=== PATIENT | male | born 1995 | race African-American/Black ===

== ENCOUNTER 2019-02-23 17:55 | Emergency (ER) | payer OTHER ==
[~2019-02-23] VITALS: Ht 182.9 cm; Wt 83.9 kg
[2019-02-23 18:22] VITALS: BP 134/77
== END 2019-02-23 18:59 | disposition home or self-care (01) ==
LOC: ER 18:00
DX: R11.2 Nausea with vomiting, unspecified (principal); F32.9 Major depressive disorder, single episode, unspecified
CPT/HCPCS: Z7502

== ENCOUNTER 2019-11-25 01:07 | Emergency (ER) | payer OTHER ==
[~2019-11-25] VITALS: Ht 182.9 cm; Wt 79.4 kg
--- NOTE | 2019-11-25 01:08 | NUR ---
PT BIB [employer] C/O SI "I WANT TO JUMP OF THE BRIDGE" PT IS AAOX4, NOT IN RESPIRATORY DISTRESS, V/S STABLE, KEPT RESTED AND COMFORTABLE, CALLED SECURITY FOR WANDING, WILL CONTINUE TO MONITOR.
--- NOTE | 2019-11-25 01:10 | NUR ---
URINAL GIVEN UNABLE TO PROVIDE URINE SPECIMEN THIS TIME.
--- NOTE | 2019-11-25 01:11 | NUR ---
SEEN AND EXAMINED BY .
--- NOTE | 2019-11-25 01:25 | NUR ---
ER PHLEB AT BEDSIDE FOR BLOOD DRAW.
[2019-11-25 01:28] LABS: BASOPHILS # (AUTO) 0.1 /CMM (0.0-0.2); BASOPHILS % (AUTO) 0.8 % (0.0-2.0); EOSINOPHILS % (AUTO) 1.7 % (0.0-6.0); HEMATOCRIT 44 % (39-51); HEMOGLOBIN 14.6 g/dL (13.5-17.5); LYMPHOCYTES # (AUTO) 3.4 /CMM (0.8-4.8); LYMPHOCYTES % (AUTO) 22.1 % (20.0-44.0); MEAN CORPUSCULAR HGB CONC 33 g/dl (31.0-36.0); MEAN CORPUSCULAR VOLUME 90 fL (80-96); MONOCYTES # (AUTO) 1.3 /CMM (0.1-1.30); MONOCYTES % (AUTO) 8.1 % (2.0-12.0); NEUTROPHILS # (AUTO) 10.4 /CMM (1.8-8.9); NEUTROPHILS % (AUTO) 67.3 % (43.0-81.0); PLATELET COUNT (AUTO) 330 /CMM (150-450); RED BLOOD CELL COUNT(AUTO) 4.86 MIL/uL (4.5-6.0); WHITE BLOOD COUNT (AUTO) 15.4 K/uL (4.3-11.0)
[2019-11-25 01:37] LABS: CALCIUM, SERUM 9.1 mg/dL (8.5-10.1); CARBON DIOXIDE 30 mmol/L (21-32); CHLORIDE 103 mmol/L (98-107); CREATININE 1.2 mg/dL (0.6-1.3); GLUCOSE 136 mg/dL (74-106); POTASSIUM 3.6 mmol/L (3.5-5.1); SODIUM SERUM 141 mmol/L (136-145); UREA NITROGEN, BLOOD 20 mg/dL (7-18)
[2019-11-25 01:43] LABS: ALANINE AMINOTRANSFERASE 39 U/L (12-78); ALBUMIN 3.8 g/dL (3.4-5.0); ALKALINE PHOSPHATASE 106 U/L (46-116); ASPARTATE AMINOTRANSFERASE 28 U/L (15-37); BILIRUBIN,DIRECT 0.1 mg/dL (0.0-0.2); BILIRUBIN,TOTAL 0.3 mg/dL (0.2-1.0); SALICYLATE 3.7 mg/dL (2.8-20.0); TOTAL PROTEIN, SERUM 7.1 g/dL (6.4-8.2)
[2019-11-25 01:48] LABS: ACETAMINOPHEN 0 ug/ml (10-30); ALCOHOL, BLOOD < 3 mg/dL (0-0)
--- NOTE | 2019-11-25 03:05 | NUR ---
PT IN BED SLEEPING. NO DISTRESS NOTED.
--- NOTE | 2019-11-25 03:38 | NUR ---
URINE OBTAINED AND SENT TO LAB
[2019-11-25 03:42] LABS: APPEARANCE,URINE Clear (CLEAR); BILIRUBIN,URINE Negative (NEGATIVE); BLOOD, URINE Negative Ery/uL (NEGATIVE); COLOR,URINE Yellow (YELLOW); KETONES,URINE Negative (NEGATIVE); LEUKOCYTE ESTERASE ,URINE Negative (NEGATIVE); NITRITE, URINE Negative (NEGATIVE); PH,URINE 5.5 (5.0-8.0); PROTEIN,URINE Negative (NEGATIVE); UGLUCOSE Negative (NEGATIVE); UROBILINOGEN,URINE 0.2 EU/dL (0.2)
--- NOTE | 2019-11-25 04:02 | NUR ---
CALLED, NO ANSWER. LEFT MESSAGE TO DEL TWISTING FRAME OPERATOR.
--- NOTE | 2019-11-25 06:02 | NUR ---
DEL FROM CRISIS AT BEDSIDE
--- NOTE | 2019-11-25 06:05 | NUR ---
PT STATED HE WOULD LIKE TO GO VOLUNTARY.
--- NOTE | 2019-11-25 06:31 | NUR ---
CLINICAL AND FACESHEET FAXED TO [facility]TA[facility] FOR VOLUNTARY PSYCH ADMISSION.
--- NOTE | 2019-11-25 06:50 | NUR ---
PT ASLEEP. VSS. EASILY AROUSED.
--- NOTE | 2019-11-25 08:03 | NUR ---
[facility] CALL[facility] AND PT IS ACCEPTED. GOING TO UNIT [address]. [address] IS [address]. LOCKWOOD AND DR. SKINNER. PT GOING TO ROOM 108-B. NUMBER FOR REPORT. [phone] EXT. [phone].
--- NOTE | 2019-11-25 08:23 | NUR ---
CALLED CALL THE CAR FOR TRANSPORT TO [facility]. ETA [facility] 45 MINUTES. REFERENCE NUMBER [id number].
--- NOTE | 2019-11-25 08:52 | NUR ---
Patient awake alert asking for food tray given no agitaion @ this time continue to monitor .
--- NOTE | 2019-11-25 08:54 | NUR ---
RADIOLOGY AT BEDSIDE FOR CHEST XRAY.
[2019-11-25 09:07] LABS: BASOPHILS # (AUTO) 0.4 /CMM (0.0-0.2); BASOPHILS % (AUTO) 3.3 % (0.0-2.0); EOSINOPHILS % (AUTO) 1.7 % (0.0-6.0); HEMATOCRIT 43 % (39-51); HEMOGLOBIN 14.1 g/dL (13.5-17.5); LYMPHOCYTES # (AUTO) 1.3 /CMM (0.8-4.8); LYMPHOCYTES % (AUTO) 11.6 % (20.0-44.0); MEAN CORPUSCULAR HGB CONC 33 g/dl (31.0-36.0); MEAN CORPUSCULAR VOLUME 90 fL (80-96); MONOCYTES # (AUTO) 0.9 /CMM (0.1-1.30); MONOCYTES % (AUTO) 8.1 % (2.0-12.0); NEUTROPHILS # (AUTO) 8.8 /CMM (1.8-8.9); NEUTROPHILS % (AUTO) 75.3 % (43.0-81.0); PLATELET COUNT (AUTO) 298 /CMM (150-450); RED BLOOD CELL COUNT(AUTO) 4.74 MIL/uL (4.5-6.0); WHITE BLOOD COUNT (AUTO) 11.6 K/uL (4.3-11.0)
[2019-11-25 09:30] VITALS: BP 112/59
--- NOTE | 2019-11-25 09:31 | NUR ---
TRANSPORTED TO [facility] IN STABLE CONDITION.
== END 2019-11-25 09:33 ==
LOC: ER 01:10
DX: R45.851 Suicidal ideations (principal); F20.9 Schizophrenia, unspecified; F31.9 Bipolar disorder, unspecified
CPT/HCPCS: 36415; 71045; 80048; 80076; 80305; 80307; 80329; 81001; 85025 ×2; 99285; G0480; 81000-TC

== ENCOUNTER 2019-12-08 21:22 | Emergency (ER) | payer OTHER ==
[~2019-12-08] VITALS: Ht 182.9 cm; Wt 79.4 kg
--- NOTE | 2019-12-08 21:22 | NUR ---
TO ER BED 13 AMBULATORY C/O SI WITH PLAN TO JUMP OFF THE BRIDGE. " I WANT TO JUMP OF THE BRIDGE." PT AAOX4 KULWINDER CUTE DISTRESS NOTED, RESP EVEN AND UNLABORED. PT CAM AND COOPERATIVE AT THIS TIME. CHARLYE PT ON HOSPITAL GOWN, ALL BELONGING REMOVED FROM ROOM, 1:1 SITTER AT BEDSIDE FOR PT SAFETY.
--- NOTE | 2019-12-08 21:35 | NUR ---
URINE SAMPLE COLLECTED AND SENT TO LAB.
[2019-12-08 21:51] LABS: BASOPHILS # (AUTO) 0.1 /CMM (0.0-0.2); BASOPHILS % (AUTO) 1.2 % (0.0-2.0); EOSINOPHILS % (AUTO) 3.1 % (0.0-6.0); HEMATOCRIT 42 % (39-51); HEMOGLOBIN 14.1 g/dL (13.5-17.5); LYMPHOCYTES # (AUTO) 3.5 /CMM (0.8-4.8); LYMPHOCYTES % (AUTO) 30.2 % (20.0-44.0); MEAN CORPUSCULAR HGB CONC 33 g/dl (31.0-36.0); MEAN CORPUSCULAR VOLUME 90 fL (80-96); MONOCYTES # (AUTO) 0.9 /CMM (0.1-1.30); MONOCYTES % (AUTO) 7.4 % (2.0-12.0); NEUTROPHILS # (AUTO) 6.8 /CMM (1.8-8.9); NEUTROPHILS % (AUTO) 58.1 % (43.0-81.0); PLATELET COUNT (AUTO) 345 /CMM (150-450); WHITE BLOOD COUNT (AUTO) 11.7 K/uL (4.3-11.0)
[2019-12-08 22:08] LABS: ALANINE AMINOTRANSFERASE 41 U/L (12-78); ALBUMIN 3.7 g/dL (3.4-5.0); ALCOHOL, BLOOD < 3 mg/dL (0-0); ALKALINE PHOSPHATASE 91 U/L (46-116); ASPARTATE AMINOTRANSFERASE 28 U/L (15-37); BILIRUBIN,DIRECT 0.1 mg/dL (0.0-0.2); BILIRUBIN,TOTAL 0.3 mg/dL (0.2-1.0); CALCIUM, SERUM 8.8 mg/dL (8.5-10.1); CARBON DIOXIDE 29 mmol/L (21-32); CHLORIDE 104 mmol/L (98-107); CREATININE 1.5 mg/dL (0.6-1.3); GLUCOSE 111 mg/dL (74-106); POTASSIUM 3.9 mmol/L (3.5-5.1); SALICYLATE 2.9 mg/dL (2.8-20.0); SODIUM SERUM 140 mmol/L (136-145); TOTAL PROTEIN, SERUM 6.7 g/dL (6.4-8.2); UREA NITROGEN, BLOOD 15 mg/dL (7-18)
[2019-12-08 22:11] LABS: ACETAMINOPHEN 0 ug/ml (10-30)
[2019-12-08 22:34] LABS: APPEARANCE,URINE Clear (CLEAR); BILIRUBIN,URINE SMALL (NEGATIVE); BLOOD, URINE Negative Ery/uL (NEGATIVE); COLOR,URINE Dark (YELLOW); KETONES,URINE Trace (NEGATIVE); LEUKOCYTE ESTERASE ,URINE Negative (NEGATIVE); NITRITE, URINE Negative (NEGATIVE); PH,URINE 5.5 (5.0-8.0); PROTEIN,URINE 100 mg/dl (NEGATIVE); UGLUCOSE Negative (NEGATIVE); UROBILINOGEN,URINE 0.2 EU/dL (0.2)
[2019-12-08 22:54] LABS: BACTERIA,URINE None seen /HPF (None Seen); RBC,URINE 0-2 /HPF (0-2); SQUAMOUS EPITHELIAL CELL,UR Few /HPF (None Seen); WBC,URINE 0-2 /HPF (0-3)
--- NOTE | 2019-12-08 23:50 | NUR ---
CLINICAL PACKET FAXED TO [facility]
--- NOTE | 2019-12-09 03:35 | NUR ---
PT ACCEPTED TO [facility] ACCEPTING MD: DR. KEN/DR. SLOAN NUMBER FOR REPORT: [phone] EXT [phone]
--- NOTE | 2019-12-09 03:41 | NUR ---
CALLED CALL THE CAR FOR TRANSPORTATION. WILL CALL BACK WITH ETA. CONFIRMATION #[id number]
--- NOTE | 2019-12-09 04:31 | NUR ---
REPORT GIVEN TO [facility] TRANSPORT TEAM FOR SAMY. AND TRASNFERRING RESPONSIBILITIES.
--- NOTE | 2019-12-09 04:31 | NUR ---
REPORT GIVEN TO ROMINA BARRETO AT [facility] FOR SAMY.
[2019-12-09 04:32] VITALS: BP 131/76
== END 2019-12-09 04:42 ==
LOC: ER 21:26
DX: R45.851 Suicidal ideations (principal); F32.9 Major depressive disorder, single episode, unspecified; R45.850 Homicidal ideations; F19.10 Other psychoactive substance abuse, uncomplicated; Z59.0 Homelessness
CPT/HCPCS: 36415; 80048; 80076; 80305; 80307; 80329; 81001; 85025; 99285; G0480; 81000-TC

== ENCOUNTER 2020-01-01 20:53 | Emergency (ER) | payer OTHER ==
[~2020-01-01] VITALS: Ht 193 cm; Wt 81.6 kg
--- NOTE | 2020-01-01 21:11 | NUR ---
PT AAOX4. AMBULATORY WITH STEADY GAIT. BIBSELF C/O SI TO SHOOT HIMSELF, NO HI. VSS. NO ACUTE DISTRESS NOTED. VSS. PLACED IN BED 11. BELONINGS PLACED IN LOCKER, PLACED IN GOWN, ON MONITOR, AND PULSE OX. VSS.
--- NOTE | 2020-01-01 21:19 | NUR ---
URINE SAMPLE PROVIDED, SUPERVISOR COUNSELING AND GUIDANCE AT BEDSIDE FOR LABS
--- NOTE | 2020-01-01 21:27 | NUR ---
SECURITY CALLED FOR WANDING.
[2020-01-01 21:35] LABS: BASOPHILS # (AUTO) 0.1 /CMM (0.0-0.2); BASOPHILS % (AUTO) 0.8 % (0.0-2.0); EOSINOPHILS % (AUTO) 2.3 % (0.0-6.0); HEMATOCRIT 41 % (39-51); HEMOGLOBIN 13.7 g/dL (13.5-17.5); LYMPHOCYTES # (AUTO) 2.3 /CMM (0.8-4.8); LYMPHOCYTES % (AUTO) 24.1 % (20.0-44.0); MEAN CORPUSCULAR HGB CONC 33 g/dl (31.0-36.0); MEAN CORPUSCULAR VOLUME 92 fL (80-96); MONOCYTES # (AUTO) 0.8 /CMM (0.1-1.30); NEUTROPHILS # (AUTO) 6.1 /CMM (1.8-8.9); NEUTROPHILS % (AUTO) 64.8 % (43.0-81.0); PLATELET COUNT (AUTO) 301 /CMM (150-450); RED BLOOD CELL COUNT(AUTO) 4.49 MIL/uL (4.5-6.0); WHITE BLOOD COUNT (AUTO) 9.4 K/uL (4.3-11.0)
[2020-01-01 21:48] LABS: CALCIUM, SERUM 8.5 mg/dL (8.5-10.1); CARBON DIOXIDE 30 mmol/L (21-32); CHLORIDE 103 mmol/L (98-107); CREATININE 1.4 mg/dL (0.6-1.3); GLUCOSE 109 mg/dL (74-106); POTASSIUM 4.1 mmol/L (3.5-5.1); SODIUM SERUM 139 mmol/L (136-145); UREA NITROGEN, BLOOD 10 mg/dL (7-18)
[2020-01-01 21:49] LABS: APPEARANCE,URINE Clear (CLEAR); BILIRUBIN,URINE Negative (NEGATIVE); BLOOD, URINE Negative Ery/uL (NEGATIVE); COLOR,URINE Yellow (YELLOW); KETONES,URINE Negative (NEGATIVE); LEUKOCYTE ESTERASE ,URINE Negative (NEGATIVE); NITRITE, URINE Negative (NEGATIVE); PROTEIN,URINE Trace mg/dl (NEGATIVE); UGLUCOSE Negative (NEGATIVE)
[2020-01-01 21:52] LABS: BACTERIA,URINE Few /HPF (None Seen); MUCUS,URINE Moderate /LPF (None Seen); SQUAMOUS EPITHELIAL CELL,UR Few /HPF (None Seen)
[2020-01-01 22:06] LABS: ALANINE AMINOTRANSFERASE 92 U/L (12-78); ALBUMIN 3.6 g/dL (3.4-5.0); ALCOHOL, BLOOD < 3 mg/dL (0-0); ALKALINE PHOSPHATASE 84 U/L (46-116); ASPARTATE AMINOTRANSFERASE 65 U/L (15-37); BILIRUBIN,DIRECT 0.1 mg/dL (0.0-0.2); BILIRUBIN,TOTAL 0.4 mg/dL (0.2-1.0); TOTAL PROTEIN, SERUM 6.6 g/dL (6.4-8.2)
[2020-01-01 22:07] LABS: ACETAMINOPHEN 0 ug/ml (10-30); SALICYLATE 2.6 mg/dL (2.8-20.0)
--- NOTE | 2020-01-01 22:19 | NUR ---
Patient is resting comfortably in bed. Easily aroused. VSS.
--- NOTE | 2020-01-01 22:29 | NUR ---
CLINICAL INFORMATION FAXED TO [facility]
--- NOTE | 2020-01-02 00:19 | NUR ---
PER [facility], CLINICAL INFORMATION STILL BEING REVIEWED
--- NOTE | 2020-01-02 01:03 | NUR ---
Patient is resting comfortably in bed with eyes closed. Easily aroused. VSS
--- NOTE | 2020-01-02 02:30 | NUR ---
SPOKE WITH ZURI FROM [facility], STILL NO PLACEMENT FOR THIS PT AT THIS TIME. WILL FOLLOW UP
--- NOTE | 2020-01-02 04:27 | NUR ---
ACCEPTED BY [facility], DR. KEN PSYCH , DR. GRANT [facility] #[phone] EXT. [phone] LOOK FOR CHARGE NURSE FRANDY
--- NOTE | 2020-01-02 05:32 | NUR ---
CALLED CALL THE CAR FOR TRANSPORTATION. CONFIRMATION #[id number]. PENDING ETA
--- NOTE | 2020-01-02 06:07 | NUR ---
[facility] ETA 0700
--- NOTE | 2020-01-02 06:29 | NUR ---
REPORT GIVEN TO SARAI BARRETO FOR SAMY
--- NOTE | 2020-01-02 07:13 | NUR ---
AWAITING TRIM MACHINE ADJUSTER.
--- NOTE | 2020-01-02 07:23 | NUR ---
[facility] DELAYED 15 MINUTES
[2020-01-02 08:10] VITALS: BP 128/66
--- NOTE | 2020-01-02 08:10 | NUR ---
TRANSFERED IN STABLE CONDITION.
== END 2020-01-02 08:12 ==
LOC: ER 20:54
DX: R45.851 Suicidal ideations (principal); R74.0 Nonspecific elevation of levels of transaminase and lactic acid dehydrogenase [LDH]; N28.9 Disorder of kidney and ureter, unspecified; F15.10 Other stimulant abuse, uncomplicated; F32.9 Major depressive disorder, single episode, unspecified; Z59.0 Homelessness
CPT/HCPCS: 36415; 80048; 80076; 80305; 80307; 80329; 81001; 85025; 87491; 87591; 99285; G0480; J7030; 81000-TC; 87086-TC

== ENCOUNTER 2020-01-15 23:25 | Emergency (ER) | payer OTHER ==
[~2020-01-15] VITALS: Ht 182.9 cm; Wt 77.1 kg
--- NOTE | 2020-01-15 23:25 | NUR ---
TO ER BED 15 AMBULATORY C/O SI WITH PLAN TO SHOOT SELF. PT DENIES HI. PT AAOX4 NO ACUTE DISTRESS NOTED, RESP EVEN AND UNLABORED. PT CALM AND COOPERATIVE AT THIS TIME. PLACE PT ON HOSPITAL GOWN, ALL BELONGINGS REMOVED AND PLACED IN A LOCKED HOSPITAL LOCKER. 1:1 SITTER AT BEDSIDE FOR PT SAFETY.
--- NOTE | 2020-01-16 | NUR ---
URINE SAMPLE COLLECTED AND SENT TO LAB.
--- NOTE | 2020-01-16 00:15 | NUR ---
ASSOCIATE PROFESSOR OF PHILOSOPHY AT BEDSIDE FOR BLOOD DRAW.
[2020-01-16 00:22] LABS: BASOPHILS # (AUTO) 0.1 /CMM (0.0-0.2); BASOPHILS % (AUTO) 1.3 % (0.0-2.0); EOSINOPHILS % (AUTO) 2.4 % (0.0-6.0); HEMATOCRIT 42 % (39-51); HEMOGLOBIN 13.9 g/dL (13.5-17.5); LYMPHOCYTES # (AUTO) 2.9 /CMM (0.8-4.8); LYMPHOCYTES % (AUTO) 30.8 % (20.0-44.0); MEAN CORPUSCULAR HGB CONC 34 g/dl (31.0-36.0); MEAN CORPUSCULAR VOLUME 91 fL (80-96); MONOCYTES # (AUTO) 0.8 /CMM (0.1-1.30); MONOCYTES % (AUTO) 8.7 % (2.0-12.0); NEUTROPHILS # (AUTO) 5.4 /CMM (1.8-8.9); NEUTROPHILS % (AUTO) 56.8 % (43.0-81.0); PLATELET COUNT (AUTO) 329 /CMM (150-450); RED BLOOD CELL COUNT(AUTO) 4.57 MIL/uL (4.5-6.0); WHITE BLOOD COUNT (AUTO) 9.5 K/uL (4.3-11.0)
[2020-01-16 00:29] LABS: APPEARANCE,URINE Clear (CLEAR); BILIRUBIN,URINE SMALL (NEGATIVE); BLOOD, URINE Negative Ery/uL (NEGATIVE); COLOR,URINE Yellow (YELLOW); KETONES,URINE Negative (NEGATIVE); LEUKOCYTE ESTERASE ,URINE Negative (NEGATIVE); NITRITE, URINE Negative (NEGATIVE); PROTEIN,URINE 30 mg/dl (NEGATIVE); UGLUCOSE Negative (NEGATIVE)
[2020-01-16 00:30] LABS: CARBON DIOXIDE 29 mmol/L (21-32); CHLORIDE 103 mmol/L (98-107); GLUCOSE 89 mg/dL (74-106); POTASSIUM 3.5 mmol/L (3.5-5.1); SODIUM SERUM 139 mmol/L (136-145); UREA NITROGEN, BLOOD 17 mg/dL (7-18)
[2020-01-16 00:35] LABS: ALANINE AMINOTRANSFERASE 31 U/L (12-78); ALBUMIN 3.9 g/dL (3.4-5.0); ALCOHOL, BLOOD < 3 mg/dL (0-0); ALKALINE PHOSPHATASE 56 U/L (46-116); ASPARTATE AMINOTRANSFERASE 26 U/L (15-37); BILIRUBIN,DIRECT 0.2 mg/dL (0.0-0.2); BILIRUBIN,TOTAL 0.7 mg/dL (0.2-1.0); TOTAL PROTEIN, SERUM 6.7 g/dL (6.4-8.2)
[2020-01-16 00:36] LABS: ACETAMINOPHEN 0 ug/ml (10-30); SALICYLATE 2.5 mg/dL (2.8-20.0)
[2020-01-16 01:25] LABS: RBC,URINE 0-2 /HPF (0-2)
[2020-01-16 01:26] LABS: BACTERIA,URINE Few /HPF (None Seen); SQUAMOUS EPITHELIAL CELL,UR Rare /HPF (None Seen)
[2020-01-16 01:27] LABS: WBC,URINE 51-80 /HPF (0-3)
--- NOTE | 2020-01-16 01:47 | NUR ---
CLINICAL FAXED TO [facility] FOR VOLUNTARY PSYCH ADMISSION.
--- NOTE | 2020-01-16 02:00 | NUR ---
PT ASLEEP, NO ACUTE DISTRESS NOTED, RESP EVEN AND UNLABORED. CALL LIGHT WITHIN REACH. WILL CONTINUE TO MONITOR PT CLOSELY. 1:1SITTER AT BEDSIDE.
--- NOTE | 2020-01-16 02:48 | NUR ---
PT ACCEPTED AT [facility] ACCEPTING MD SKINNER/MANDIE PT WILL GO TO UNIT 1 PHONE NUMBER FOR REPORT
--- NOTE | 2020-01-16 03:15 | NUR ---
REPORT CALLED TO SELENA VELÁSQUEZ. PENDING TRANSPORT.
--- NOTE | 2020-01-16 03:26 | NUR ---
CALLED CALL THE CAR FOR B[facility] TRANSPORT. [facility]
--- NOTE | 2020-01-16 03:27 | NUR ---
CALLED [facility] FOR S TRANSPORT. ETA [phone]
--- NOTE | 2020-01-16 03:29 | NUR ---
CANCELED [facility].
--- NOTE | 2020-01-16 05:55 | NUR ---
PT ASLEEP, NO ACUTE DISTRESS NOTED, RESP EVEN AND UNLABORED. CALL LIGHT WITHIN REACH. WILL CONTINUE TO MONITOR PT CLOSELY. 1:1SITTER AT BEDSIDE.
--- NOTE | 2020-01-16 07:04 | NUR ---
UPDATED ETA ON [facility] 899
--- NOTE | 2020-01-16 07:06 | NUR ---
UPDATED ETA [facility] 2989
[2020-01-16 07:14] VITALS: BP 129/71
--- NOTE | 2020-01-16 07:58 | NUR ---
REPORT GIVEN TO EMT FOR PT TRANSFER TO [facility].
== END 2020-01-16 08:05 ==
LOC: ER 23:27
DX: R45.851 Suicidal ideations (principal); F17.200 Nicotine dependence, unspecified, uncomplicated; F15.10 Other stimulant abuse, uncomplicated; F32.9 Major depressive disorder, single episode, unspecified; Z59.0 Homelessness
CPT/HCPCS: 36415; 80048; 80076; 80305; 80307; 80329; 81001; 85025; 99285; 99406; G0480; 81000-TC; 87086-TC

== ENCOUNTER 2020-01-24 10:34 | Emergency (ER) | payer OTHER ==
[~2020-01-24] VITALS: Ht 182.9 cm; Wt 77.1 kg
--- NOTE | 2020-01-24 11:04 | NUR ---
URINE SAMPLE SENT TO LAB
--- NOTE | 2020-01-24 11:11 | NUR ---
BIBS WALKED IN TO ER. TO ER BED 6. AAOX4. NOT IN RESP DISTRESS. AMBUALTORY. CAME IN FOR SUICIDAL IDEATION WITH PLAN TO SHOOT HIM SELF. PT REPORTS HE HAS BEEN FEELING DEPRESSED AND SUICIDAL FOR THE PAST 3 DAYS. PT DOES NOT HAVE A GUN UPON VISUAL INSPECTION. PT WAS STRIPPED OF CLOTHINGG, GOWNED AND BELONGINGS PLACED IN LOCKER LOCATED IN UTILITY ROOM. MD WAS AT BEDSIDE FOR EVAL. GRAPHIC ART TECHNICIAN AT BEDSIDE FOR BLOOD DRAW. 1:1 SITTER WITH CONSTANT VISUAL CHECK
--- NOTE | 2020-01-24 11:13 | NUR ---
PT IS SEEKING VOLUNTARY INPATIENT CARE
[2020-01-24 11:16] LABS: APPEARANCE,URINE Clear (CLEAR); BILIRUBIN,URINE SMALL (NEGATIVE); BLOOD, URINE Negative Ery/uL (NEGATIVE); COLOR,URINE Yellow (YELLOW); KETONES,URINE Negative (NEGATIVE); LEUKOCYTE ESTERASE ,URINE Negative (NEGATIVE); NITRITE, URINE Negative (NEGATIVE); PH,URINE 5.5 (5.0-8.0); PROTEIN,URINE 30 mg/dl (NEGATIVE); UGLUCOSE Negative (NEGATIVE); UROBILINOGEN,URINE 0.2 EU/dL (0.2)
[2020-01-24 11:18] LABS: BACTERIA,URINE Few /HPF (None Seen); RBC,URINE 0-2 /HPF (0-2); SQUAMOUS EPITHELIAL CELL,UR Rare /HPF (None Seen); WBC,URINE 0-2 /HPF (0-3)
[2020-01-24 11:21] LABS: BASOPHILS # (AUTO) 0.1 /CMM (0.0-0.2); BASOPHILS % (AUTO) 1.3 % (0.0-2.0); EOSINOPHILS % (AUTO) 2.8 % (0.0-6.0); HEMATOCRIT 42 % (39-51); HEMOGLOBIN 14.2 g/dL (13.5-17.5); LYMPHOCYTES # (AUTO) 2.7 /CMM (0.8-4.8); LYMPHOCYTES % (AUTO) 28.5 % (20.0-44.0); MEAN CORPUSCULAR HGB CONC 34 g/dl (31.0-36.0); MEAN CORPUSCULAR VOLUME 91 fL (80-96); MONOCYTES # (AUTO) 0.9 /CMM (0.1-1.30); MONOCYTES % (AUTO) 9.8 % (2.0-12.0); NEUTROPHILS # (AUTO) 5.4 /CMM (1.8-8.9); NEUTROPHILS % (AUTO) 57.6 % (43.0-81.0); PLATELET COUNT (AUTO) 348 /CMM (150-450); RED BLOOD CELL COUNT(AUTO) 4.61 MIL/uL (4.5-6.0); WHITE BLOOD COUNT (AUTO) 9.4 K/uL (4.3-11.0)
[2020-01-24 11:29] LABS: CALCIUM, SERUM 9.2 mg/dL (8.5-10.1); CARBON DIOXIDE 31 mmol/L (21-32); CHLORIDE 105 mmol/L (98-107); CREATININE 1.2 mg/dL (0.6-1.3); GLUCOSE 94 mg/dL (74-106); POTASSIUM 3.6 mmol/L (3.5-5.1); SODIUM SERUM 140 mmol/L (136-145); UREA NITROGEN, BLOOD 19 mg/dL (7-18)
[2020-01-24 11:35] LABS: ACETAMINOPHEN 0 ug/ml (10-30); ALANINE AMINOTRANSFERASE 33 U/L (12-78); ALBUMIN 3.9 g/dL (3.4-5.0); ALCOHOL, BLOOD < 3 mg/dL (0-0); ALKALINE PHOSPHATASE 58 U/L (46-116); ASPARTATE AMINOTRANSFERASE 35 U/L (15-37); BILIRUBIN,DIRECT 0.2 mg/dL (0.0-0.2); BILIRUBIN,TOTAL 0.7 mg/dL (0.2-1.0); SALICYLATE 3.4 mg/dL (2.8-20.0); TOTAL PROTEIN, SERUM 6.9 g/dL (6.4-8.2)
--- NOTE | 2020-01-24 11:37 | NUR ---
PT PROVIDED WITH FOOD
--- NOTE | 2020-01-24 12:50 | NUR ---
Medical Service Representative Consult was requested by Emergency Room staff due to this pts behavior. Pt is a 24 year old male who was admitted due to his suicidal ideation of wanting to shoot himself with a gun. Pt appeared to be alert and oriented x4 (time, place, self and situation). Pt appeared to be disheveled and malodorous. Pt appeared to be in a depressed mood and presented with a calm affect. Pt stated that he is currently homeless and that has been getting harder for him. He stated that he has a friend as his only support person and his friend lives in [place]. SW asked the pt what caused him to feel depressed this morning that he had the thought of shooting himself in the head and he stated, "I was feeling horny." Pt stated that he does have current access to a gun which is at his friend's house. Pt stated that if he felt this way again he may use the gun the next time. SW inquired if the pt would be accepting of being placed on a voluntary hold and the pt agreed. KIKE faxed a referral to [facility] with attn to Xander to the fax number: [phone]. Pt signed the homeless waiver and the SW provided him with homeless resources and substance abuse referrals. Plan: Pt will be discharged to [facility] on a voluntary hold.
--- NOTE | 2020-01-24 13:46 | NUR ---
PT IN BED PROVIDED FOOD AGAIN.
--- NOTE | 2020-01-24 13:47 | NUR ---
REPORT GIVEN TO NIXON BARRETO FOR SAMY
--- NOTE | 2020-01-24 14:05 | NUR ---
SPOKE WITH GASTON, CALL THE CAR FOR BLS TRANSPORT TO [facility]. RESERVATION# [id number]. WILL CALL BACK FOR ETA
--- NOTE | 2020-01-24 14:40 | NUR ---
[facility] 716 AT PT BEDSIDE FOR TRANSPORT TO [facility]. REPORT GIVEN TO AMBULANCE STAFF. NAD NOTED. PT IS IN STABLE CONDITION FOR TRANSPORT.
[2020-01-24 14:41] VITALS: BP 132/76
--- NOTE | 2020-01-24 14:41 | NUR ---
PT BELONGINGS RELEASED TO AMBULACE STAFF.
--- NOTE | 2020-01-24 14:43 | NUR ---
PT LEFT ON [facility] W/ 2 AMBULANCE STAFF
== END 2020-01-24 14:43 ==
LOC: ER 10:41
DX: R45.851 Suicidal ideations (principal); F32.9 Major depressive disorder, single episode, unspecified; Z59.0 Homelessness
CPT/HCPCS: 36415; 80048; 80076; 80305; 80307; 80329; 81001; 85025; 99285; G0480; 81000-TC

== ENCOUNTER 2020-01-31 18:06 | Emergency (ER) | payer OTHER ==
[~2020-01-31] VITALS: Ht 180.3 cm; Wt 74.8 kg
--- NOTE | 2020-01-31 18:10 | NUR ---
PT BIB SELF C/O SUICIDAL IDEATION "I WANT TO SHOOT MY SELF" PT IS AAOX4, NOT IN RESPIRATORY DISTRESS, V/S STABLE, KEPT RESTED AND COMFORTABLE, SITTER AT BEDSIDE, WILL CONTINUE TO MONITOR.
--- NOTE | 2020-01-31 18:13 | NUR ---
URINE SPECIMEN COLLECTED AND SENT TO LAB.
--- NOTE | 2020-01-31 18:17 | NUR ---
SECURITY AT BEDSIDE FOR WANDING.
--- NOTE | 2020-01-31 18:19 | NUR ---
SANJAY AN AT BEDSIDE FOR EVAL.
[2020-01-31 18:30] LABS: APPEARANCE,URINE Clear (CLEAR); BILIRUBIN,URINE Negative (NEGATIVE); BLOOD, URINE Small Ery/uL (NEGATIVE); COLOR,URINE Yellow (YELLOW); KETONES,URINE Negative (NEGATIVE); LEUKOCYTE ESTERASE ,URINE Negative (NEGATIVE); NITRITE, URINE Negative (NEGATIVE); PH,URINE 5.5 (5.0-8.0); PROTEIN,URINE 30 mg/dl (NEGATIVE); UGLUCOSE Negative (NEGATIVE); UROBILINOGEN,URINE 0.2 EU/dL (0.2)
[2020-01-31 18:34] LABS: BASOPHILS # (AUTO) 0.1 /CMM (0.0-0.2); BASOPHILS % (AUTO) 1.2 % (0.0-2.0); EOSINOPHILS % (AUTO) 2.8 % (0.0-6.0); HEMATOCRIT 40 % (39-51); HEMOGLOBIN 13.3 g/dL (13.5-17.5); LYMPHOCYTES % (AUTO) 30.9 % (20.0-44.0); MEAN CORPUSCULAR HGB CONC 34 g/dl (31.0-36.0); MEAN CORPUSCULAR VOLUME 92 fL (80-96); MONOCYTES % (AUTO) 10.3 % (2.0-12.0); NEUTROPHILS # (AUTO) 5.4 /CMM (1.8-8.9); NEUTROPHILS % (AUTO) 54.8 % (43.0-81.0); PLATELET COUNT (AUTO) 303 /CMM (150-450); RED BLOOD CELL COUNT(AUTO) 4.34 MIL/uL (4.5-6.0); WHITE BLOOD COUNT (AUTO) 9.8 K/uL (4.3-11.0)
[2020-01-31 18:48] LABS: BACTERIA,URINE Rare /HPF (None Seen); SQUAMOUS EPITHELIAL CELL,UR Few /HPF (None Seen); WBC,URINE NONE SEEN /HPF (0-3)
[2020-01-31 18:49] LABS: ALANINE AMINOTRANSFERASE 39 U/L (12-78); ALBUMIN 3.7 g/dL (3.4-5.0); ALCOHOL, BLOOD < 3 mg/dL (0-0); ALKALINE PHOSPHATASE 60 U/L (46-116); ASPARTATE AMINOTRANSFERASE 49 U/L (15-37); BILIRUBIN,DIRECT 0.1 mg/dL (0.0-0.2); BILIRUBIN,TOTAL 0.5 mg/dL (0.2-1.0); CALCIUM, SERUM 9.1 mg/dL (8.5-10.1); CARBON DIOXIDE 27 mmol/L (21-32); CHLORIDE 104 mmol/L (98-107); CREATININE 1.4 mg/dL (0.6-1.3); GLUCOSE 141 mg/dL (74-106); POTASSIUM 3.5 mmol/L (3.5-5.1); SODIUM SERUM 139 mmol/L (136-145); TOTAL PROTEIN, SERUM 6.6 g/dL (6.4-8.2); UREA NITROGEN, BLOOD 25 mg/dL (7-18)
[2020-01-31 18:50] LABS: ACETAMINOPHEN < 2 ug/ml (10-30); SALICYLATE 2.1 mg/dL (2.8-20.0)
[2020-01-31] MEDS: IV NS 0.9% 1,000 ML BAG IV ONE (19:36)
--- NOTE | 2020-01-31 21:47 | NUR ---
TRANSFER INFORMATION: PT [facility] TO [facility]ING MD: DR. SKINNER NUMBER FOR REPORT: [phone] CALLED CALL THE CAR FOR TRANSPORTATION. ETA 60-90MINUTES
--- NOTE | 2020-01-31 22:18 | NUR ---
REPORT GIVEN TO ZABRINA BARRETO FOR SAMY
--- NOTE | 2020-01-31 23:07 | NUR ---
[facility] 20-30 MIN DELAY
[2020-02-01 00:14] VITALS: BP 124/82
--- NOTE | 2020-02-01 00:14 | NUR ---
REPORT GIVEN TO RAPHAEL HUTCHINSON TRANSFERED.
== END 2020-02-01 00:16 ==
LOC: ER 18:06
DX: R45.851 Suicidal ideations (principal); F19.10 Other psychoactive substance abuse, uncomplicated; D64.9 Anemia, unspecified; N17.9 Acute kidney failure, unspecified; F32.9 Major depressive disorder, single episode, unspecified; F20.9 Schizophrenia, unspecified; Z59.0 Homelessness
CPT/HCPCS: 36415; 80048; 80076; 80305; 80307; 80329; 81001; 85025; 99285; G0480; J7030; 81000-TC

== ENCOUNTER 2020-02-21 08:53 | Emergency (ER) | payer OTHER ==
[~2020-02-21] VITALS: Ht 180.3 cm; Wt 75.3 kg
--- NOTE | 2020-02-21 08:55 | NUR ---
PT BIB SELF C/O SI "I WANT TO SHOOT MY SELF" PT IS AAOX4, NOT IN RESPIRATORY DISTRESS, V/S STABLE, KEPT RESTED AND COMFORTABLE. SITTER AT BEDSIDE.
--- NOTE | 2020-02-21 08:57 | NUR ---
SUICIDE PRECAUTIONS APPLIED
--- NOTE | 2020-02-21 09:00 | NUR ---
URINE SPECIMEN COLLECTED AND SENT TO LAB.
--- NOTE | 2020-02-21 09:07 | NUR ---
CALLED SECURITY FOR WANDING.
[2020-02-21 09:31] LABS: APPEARANCE,URINE Clear (CLEAR); BILIRUBIN,URINE Negative (NEGATIVE); BLOOD, URINE Negative Ery/uL (NEGATIVE); COLOR,URINE Yellow (YELLOW); KETONES,URINE Negative (NEGATIVE); LEUKOCYTE ESTERASE ,URINE Negative (NEGATIVE); NITRITE, URINE Negative (NEGATIVE); PH,URINE 5.5 (5.0-8.0); PROTEIN,URINE Trace mg/dl (NEGATIVE); UGLUCOSE Negative (NEGATIVE); UROBILINOGEN,URINE 0.2 EU/dL (0.2)
[2020-02-21 09:37] LABS: BASOPHILS # (AUTO) 0.1 /CMM (0.0-0.2); BASOPHILS % (AUTO) 1.5 % (0.0-2.0); HEMATOCRIT 41 % (39-51); HEMOGLOBIN 13.7 g/dL (13.5-17.5); LYMPHOCYTES # (AUTO) 2.3 /CMM (0.8-4.8); LYMPHOCYTES % (AUTO) 27.4 % (20.0-44.0); MEAN CORPUSCULAR HGB CONC 33 g/dl (31.0-36.0); MEAN CORPUSCULAR VOLUME 93 fL (80-96); MONOCYTES # (AUTO) 0.8 /CMM (0.1-1.30); MONOCYTES % (AUTO) 9.1 % (2.0-12.0); NEUTROPHILS # (AUTO) 4.9 /CMM (1.8-8.9); PLATELET COUNT (AUTO) 330 /CMM (150-450); RED BLOOD CELL COUNT(AUTO) 4.42 MIL/uL (4.5-6.0); WHITE BLOOD COUNT (AUTO) 8.3 K/uL (4.3-11.0)
[2020-02-21 09:44] LABS: BACTERIA,URINE Rare /HPF (None Seen); MUCUS,URINE Moderate /LPF (None Seen); RBC,URINE 0-1 /HPF (0-2); SQUAMOUS EPITHELIAL CELL,UR Few /HPF (None Seen)
[2020-02-21 09:49] LABS: ACETAMINOPHEN < 2 ug/ml (10-30); ALANINE AMINOTRANSFERASE 34 U/L (12-78); ALBUMIN 3.6 g/dL (3.4-5.0); ALCOHOL, BLOOD < 3 mg/dL (0-0); ALKALINE PHOSPHATASE 71 U/L (46-116); ASPARTATE AMINOTRANSFERASE 33 U/L (15-37); BILIRUBIN,DIRECT 0.1 mg/dL (0.0-0.2); BILIRUBIN,TOTAL 0.4 mg/dL (0.2-1.0); CALCIUM, SERUM 8.8 mg/dL (8.5-10.1); CARBON DIOXIDE 28 mmol/L (21-32); CHLORIDE 107 mmol/L (98-107); CREATININE 1.1 mg/dL (0.6-1.3); GLUCOSE 117 mg/dL (74-106); POTASSIUM 3.7 mmol/L (3.5-5.1); SALICYLATE 1.2 mg/dL (2.8-20.0); SODIUM SERUM 142 mmol/L (136-145); TOTAL PROTEIN, SERUM 6.5 g/dL (6.4-8.2); UREA NITROGEN, BLOOD 26 mg/dL (7-18)
--- NOTE | 2020-02-21 11:55 | NUR ---
CLINICALS FAXED TO [facility].
--- NOTE | 2020-02-21 12:33 | NUR ---
[facility] CALLED PT CLINICALS UNDER REVIEW.
--- NOTE | 2020-02-21 15:48 | NUR ---
GOT A CALL FROM [facility]. PT IS ACCEPTED AT [facility] BUT WILL PROVIDE INFORMATION ONCE NURSING REPORT IS GIVEN. NUMBER FOR REPORT [phone].
--- NOTE | 2020-02-21 15:52 | NUR ---
REPORT GIVEN TO DOC BARRETO OF [facility]
--- NOTE | 2020-02-21 16:02 | NUR ---
RESERVATION NUMBER [id number].
--- NOTE | 2020-02-21 19:09 | NUR ---
REPORT GIVEN TO EMT FOR PT TRANSFER TO [facility]
[2020-02-21 19:10] VITALS: BP 122/71
== END 2020-02-21 19:11 ==
LOC: ER 08:58
DX: R45.851 Suicidal ideations (principal); F32.9 Major depressive disorder, single episode, unspecified; F17.200 Nicotine dependence, unspecified, uncomplicated; Z60.2 Problems related to living alone
CPT/HCPCS: 36415; 80048; 80076; 80305; 80307; 80329; 81001; 85025; 99285; G0480; 81000-TC

== ENCOUNTER 2020-03-04 18:33 | Emergency (ER) | payer OTHER ==
[~2020-03-04] VITALS: Ht 180.3 cm; Wt 72.6 kg
--- NOTE | 2020-03-04 19:02 | NUR ---
TO ER BED 13 AMBULATORY C/O SI WITH PLAN TO JUMP IN FRONT OF A MOVING CAR. PT DENIES HI. PT AAOX4 NO ACUTE DISTRESS NOTED, RESP EVEN AND UNLABORED. PT DENIES PAIN OR DISCOMFORT AT THIS TIME. PT CALM AND COOPERATIVE AT THIS TIME. PLACE PT ON HOSPITAL GOWN, ALL BELONGINGS REMOVED AND PLACED IN A LOCKED HOSPITAL LOCKER. 1:1 SITTER AT BEDSIDE FOR SAFETY. PENDING ER MD POSADA.
--- NOTE | 2020-03-04 19:15 | NUR ---
URINE SAMPLE COLLECTED AND SENT TO LAB.
[2020-03-04 20:00] LABS: APPEARANCE,URINE Clear (CLEAR); BILIRUBIN,URINE Negative (NEGATIVE); BLOOD, URINE Negative Ery/uL (NEGATIVE); COLOR,URINE Yellow (YELLOW); KETONES,URINE Negative (NEGATIVE); LEUKOCYTE ESTERASE ,URINE Negative (NEGATIVE); NITRITE, URINE Negative (NEGATIVE); PROTEIN,URINE Negative (NEGATIVE); UGLUCOSE Negative (NEGATIVE)
[2020-03-04 20:01] LABS: BASOPHILS # (AUTO) 0.1 /CMM (0.0-0.2); BASOPHILS % (AUTO) 0.9 % (0.0-2.0); EOSINOPHILS % (AUTO) 3.3 % (0.0-6.0); HEMATOCRIT 40 % (39-51); LYMPHOCYTES # (AUTO) 3.1 /CMM (0.8-4.8); MEAN CORPUSCULAR HGB CONC 33 g/dl (31.0-36.0); MEAN CORPUSCULAR VOLUME 93 fL (80-96); MONOCYTES # (AUTO) 0.8 /CMM (0.1-1.30); MONOCYTES % (AUTO) 8.9 % (2.0-12.0); NEUTROPHILS # (AUTO) 4.4 /CMM (1.8-8.9); NEUTROPHILS % (AUTO) 50.9 % (43.0-81.0); PLATELET COUNT (AUTO) 297 /CMM (150-450); RED BLOOD CELL COUNT(AUTO) 4.26 MIL/uL (4.5-6.0); WHITE BLOOD COUNT (AUTO) 8.7 K/uL (4.3-11.0)
[2020-03-04 20:07] LABS: BACTERIA,URINE None seen /HPF (None Seen); RBC,URINE 0-2 /HPF (0-2); SQUAMOUS EPITHELIAL CELL,UR Few /HPF (None Seen); WBC,URINE 0-2 /HPF (0-3)
[2020-03-04 20:12] LABS: CALCIUM, SERUM 8.3 mg/dL (8.5-10.1); CARBON DIOXIDE 29 mmol/L (21-32); CHLORIDE 104 mmol/L (98-107); CREATININE 1.2 mg/dL (0.6-1.3); GLUCOSE 100 mg/dL (74-106); POTASSIUM 4.1 mmol/L (3.5-5.1); SODIUM SERUM 137 mmol/L (136-145); UREA NITROGEN, BLOOD 20 mg/dL (7-18)
[2020-03-04 20:25] LABS: ALANINE AMINOTRANSFERASE 29 U/L (12-78); ALBUMIN 3.4 g/dL (3.4-5.0); ALCOHOL, BLOOD < 3 mg/dL (0-0); ALKALINE PHOSPHATASE 68 U/L (46-116); ASPARTATE AMINOTRANSFERASE 21 U/L (15-37); BILIRUBIN,DIRECT 0.1 mg/dL (0.0-0.2); BILIRUBIN,TOTAL 0.3 mg/dL (0.2-1.0); SALICYLATE < 2.8 mg/dL (2.8-20.0); TOTAL PROTEIN, SERUM 6.3 g/dL (6.4-8.2)
[2020-03-04 20:26] LABS: ACETAMINOPHEN < 2 ug/ml (10-30)
--- NOTE | 2020-03-04 21:11 | NUR ---
CLINICAL FAXED TO [facility] FOR VOLUNTARY PSYCH ADMISSION.
--- NOTE | 2020-03-04 22:29 | NUR ---
PT ACCEPTED AT [facility] BY MD DYKES UNIT 2, ROOM 210-B, RN FOR REPORT [phone] EXT [phone]
--- NOTE | 2020-03-04 22:33 | NUR ---
[id number] ETA [phone] HOURS, RES#[id number]
[2020-03-04 23:37] VITALS: BP 119/71
--- NOTE | 2020-03-04 23:43 | NUR ---
REPORT GIVEN TO HIGINIO BARRETO FOR SAMY AND TRANSFER.
--- NOTE | 2020-03-04 23:50 | NUR ---
PT STATED HE IS NO LONGER SUICIDAL NOR HI. AWARE. PT LEFT ED.
== END 2020-03-04 23:44 | disposition short-term general hospital (02) ==
LOC: ER 18:35
DX: R45.851 Suicidal ideations (principal); F19.10 Other psychoactive substance abuse, uncomplicated; D64.9 Anemia, unspecified; F20.9 Schizophrenia, unspecified; F31.9 Bipolar disorder, unspecified; Z60.2 Problems related to living alone
CPT/HCPCS: 36415; 80048; 80076; 80305; 80307; 80329; 81001; 85025; 99285; G0480; 81000-TC

== ENCOUNTER 2020-03-14 11:45 | Emergency (ER) | payer OTHER ==
[~2020-03-14] VITALS: Ht 180.3 cm; Wt 77.1 kg
[2020-03-14] MEDS ORDERED: HALOPERIDOL LACTATE INJ 5 MG/ML VIAL ONE (12:03)
[2020-03-14] MEDS ORDERED: MIDAZOLAM HCL 5 MG/5ML VIAL ONE (12:04)
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
--- NOTE | 2020-03-14 12:10 | NUR ---
ER physician is aware - with orders for versed and haldol
[2020-03-14] MEDS ORDERED: HALOPERIDOL LACTATE INJ 5 MG/ML VIAL IM ONE (12:30)
[2020-03-14] MEDS ORDERED: MIDAZOLAM HCL 2 MG/2ML VIAL IM ONE (12:30)
[2020-03-14 12:43] LABS: APPEARANCE,URINE Slightly Cloudy (CLEAR); BILIRUBIN,URINE SMALL (NEGATIVE); BLOOD, URINE Negative Ery/uL (NEGATIVE); COLOR,URINE Dark (YELLOW); KETONES,URINE Trace (NEGATIVE); LEUKOCYTE ESTERASE ,URINE Negative (NEGATIVE); NITRITE, URINE Negative (NEGATIVE); PH,URINE 5.5 (5.0-8.0); PROTEIN,URINE 100 mg/dl (NEGATIVE); UGLUCOSE Negative (NEGATIVE)
[2020-03-14 12:49] LABS: BASOPHILS # (AUTO) 0.2 /CMM (0.0-0.2); BASOPHILS % (AUTO) 0.9 % (0.0-2.0); EOSINOPHILS % (AUTO) 1.6 % (0.0-6.0); HEMATOCRIT 47 % (39-51); HEMOGLOBIN 15.1 g/dL (13.5-17.5); LYMPHOCYTES # (AUTO) 5.5 /CMM (0.8-4.8); LYMPHOCYTES % (AUTO) 33.5 % (20.0-44.0); MEAN CORPUSCULAR HGB CONC 32 g/dl (31.0-36.0); MEAN CORPUSCULAR VOLUME 97 fL (80-96); MONOCYTES # (AUTO) 1.5 /CMM (0.1-1.30); MONOCYTES % (AUTO) 9.4 % (2.0-12.0); NEUTROPHILS # (AUTO) 8.9 /CMM (1.8-8.9); NEUTROPHILS % (AUTO) 54.6 % (43.0-81.0); PLATELET COUNT (AUTO) 349 /CMM (150-450); RED BLOOD CELL COUNT(AUTO) 4.88 MIL/uL (4.5-6.0); WHITE BLOOD COUNT (AUTO) 16.3 K/uL (4.3-11.0)
[2020-03-14 12:57] LABS: CALCIUM, SERUM 9.5 mg/dL (8.5-10.1); CHLORIDE 103 mmol/L (98-107); CREATININE 2.1 mg/dL (0.6-1.3); GLUCOSE 55 mg/dL (74-106); POTASSIUM 3.4 mmol/L (3.5-5.1); SODIUM SERUM 143 mmol/L (136-145); UREA NITROGEN, BLOOD 16 mg/dL (7-18)
[2020-03-14 12:59] LABS: BACTERIA,URINE Few /HPF (None Seen); MUCUS,URINE Moderate /LPF (None Seen); SQUAMOUS EPITHELIAL CELL,UR Few /HPF (None Seen)
[2020-03-14 13:02] LABS: ALANINE AMINOTRANSFERASE 42 U/L (12-78); ALBUMIN 4.4 g/dL (3.4-5.0); ALCOHOL, BLOOD < 3 mg/dL (0-0); ALKALINE PHOSPHATASE 70 U/L (46-116); ASPARTATE AMINOTRANSFERASE 46 U/L (15-37); BILIRUBIN,DIRECT 0.1 mg/dL (0.0-0.2); BILIRUBIN,TOTAL 0.4 mg/dL (0.2-1.0); CARBON DIOXIDE 10 mmol/L (21-32); SALICYLATE 3.1 mg/dL (2.8-20.0); TOTAL PROTEIN, SERUM 7.9 g/dL (6.4-8.2)
[2020-03-14 13:03] LABS: ACETAMINOPHEN < 2 ug/ml (10-30)
[2020-03-14] MEDS ORDERED: IV NS 0.9% 500 ML BAG IV ONE (15:00)
--- NOTE | 2020-03-14 15:30 | NUR ---
Patient is resting comfortably in bed with eyes closed. Easily aroused. VSS
--- NOTE | 2020-03-14 18:00 | NUR ---
Patient is resting comfortably in bed with eyes closed. Easily aroused. VSS
--- NOTE | 2020-03-14 19:28 | NUR ---
CLINICALS FAXED TO [facility].
--- NOTE | 2020-03-14 21:40 | NUR ---
PT ASLEEP, NO ACUTE DISTRESS NOTED, RESP EVEN AND UNLABORED. CALL LIGHT WITHIN REACH. WILL CONTINUE TO MONITOR PT CLOSELY.
--- NOTE | 2020-03-14 23:17 | NUR ---
PT RESTING COMFORTABLY IN BED. VSS. NO ACUTE DISTRESS NOTED. SITTER AT BEDSIDE FOR SAFETY
[2020-03-14 23:26] VITALS: BP 139/67
--- NOTE | 2020-03-14 23:32 | NUR ---
PT ASLEEP, NO ACUTE DISTRESS NOTED, RESP EVEN AND UNLABORED. CALL LIGHT WITHIN REACH. WILL CONTINUE TO MONITOR PT CLOSELY. 1:1 SITTER REMAINS AT BEDISDE FOR PT AND STAFF SAFETY.
--- NOTE | 2020-03-15 00:24 | NUR ---
PT ACCEPTED AT [facility] [address] SKINNER/[facility] [phone] UNIT 2 FOR REPORT.
--- NOTE | 2020-03-15 00:56 | NUR ---
PATIENT IS ESCORTED BY SITTER TO THE RESTROOM AND MYSELF.
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
--- NOTE | 2020-03-15 01:14 | NUR ---
POLICE REPORT CALLED TO HILARIO BINDERY MACHINE OPERATOR [phone].
--- NOTE | 2020-03-15 01:14 | NUR ---
Dajuan bustillo in [facility] - 03/15/20 at 0116 by [employer] POL[employer] REPORT CALLED TO HILARIO CLINICAL PRODUCT MANAGER [phone].
== END 2020-03-15 02:07 | disposition left against medical advice (07) ==
LOC: ER 11:47
DX: F39 Unspecified mood [affective] disorder (principal); F32.9 Major depressive disorder, single episode, unspecified; R94.31 Abnormal electrocardiogram [ECG] [EKG]; R45.1 Restlessness and agitation; F19.10 Other psychoactive substance abuse, uncomplicated; F20.9 Schizophrenia, unspecified; F17.200 Nicotine dependence, unspecified, uncomplicated; Z59.0 Homelessness
CPT/HCPCS: 36415; 80048; 80076; 80305; 80307; 80329; 81001; 83605; 85025; 93005; 96372 ×2; 99285; G0480; J1630; J2250; J7030; 81000-TC

== ENCOUNTER 2021-02-25 11:37 | Emergency (ER) | payer OTHER ==
[~2021-02-25] VITALS: Ht 180.3 cm; Wt 77.1 kg
[2021-02-25 12:05] VITALS: BP 128/89
--- NOTE | 2021-02-25 12:12 | NUR ---
SEEN BY DR INIGUEZ,X RAY ORDERED
--- NOTE | 2021-02-25 13:26 | NUR ---
Patient discharged to home in stable condition. Written and verbal after care instructions given. Patient verbalizes understanding of instruction. Pt ambulatory with a steady gait
== END 2021-02-25 13:30 | disposition home or self-care (01) ==
LOC: ER 11:40
DX: S60.222A Contusion of left hand, initial encounter (principal); M25.512 Pain in left shoulder; F20.9 Schizophrenia, unspecified; F31.9 Bipolar disorder, unspecified; Z59.0 Homelessness; Z60.2 Problems related to living alone; Y08.89XA Assault by other specified means, initial encounter; Y93.89 Activity, other specified; Y92.89 Other specified places as the place of occurrence of the external cause; Y99.8 Other external cause status
CPT/HCPCS: 73030-TC; 73130-TC

== ENCOUNTER 2021-03-06 11:56 | Emergency (ER) | payer OTHER ==
[~2021-03-06] VITALS: Ht 170.2 cm; Wt 65.8 kg
--- NOTE | 2021-03-06 12:15 | NUR ---
suicidal ideation, requests psych admission. Patient a/ox4, breathing even and unlabored, no sob noted. needs attended. Assisted to bed 13, changed into a gown. Called security for wanding.
--- NOTE | 2021-03-06 12:20 | NUR ---
PER PATIENT, HIS PLAN IS TO JUMP IN FRONT OF A CAR.
[2021-03-06 12:28] LABS: BASOPHILS # (AUTO) 0.1 K/uL (0.0-0.2); BASOPHILS % (AUTO) 0.8 % (0.0-2.0); EOSINOPHILS % (AUTO) 2.4 % (0.0-6.0); HEMATOCRIT 48 % (39-51); LYMPHOCYTES # (AUTO) 2.1 K/uL (0.8-4.8); LYMPHOCYTES % (AUTO) 23.8 % (20.0-44.0); MEAN CORPUSCULAR HGB CONC 33 g/dl (31.0-36.0); MEAN CORPUSCULAR VOLUME 91 fL (80-96); MONOCYTES # (AUTO) 0.7 K/uL (0.1-1.30); MONOCYTES % (AUTO) 8.1 % (2.0-12.0); NEUTROPHILS # (AUTO) 5.7 K/uL (1.8-8.9); NEUTROPHILS % (AUTO) 64.9 % (43.0-81.0); PLATELET COUNT (AUTO) 343 K/uL (150-450); RED BLOOD CELL COUNT(AUTO) 5.32 MIL/uL (4.5-6.0); WHITE BLOOD COUNT (AUTO) 8.7 K/uL (4.3-11.0)
--- NOTE | 2021-03-06 12:40 | NUR ---
SECURITY AT BEDSIDE FOR WANDING.
--- NOTE | 2021-03-06 12:45 | NUR ---
belongings: citizen of [place] army knife, black (wiko) cellphone, rickshaw driver, instructional technology facilitator, headphones and chains. PLACED AT THE NURSES STATION, DRAWER BY THE SINK with his name on the belongings bag.
[2021-03-06 12:54] LABS: CALCIUM, SERUM 9.5 mg/dL (8.5-10.1); CARBON DIOXIDE 30 mmol/L (21-32); CHLORIDE 105 mmol/L (98-107); CREATININE 1.4 mg/dL (0.6-1.3); GLUCOSE 75 mg/dL (74-106); POTASSIUM 3.9 mmol/L (3.5-5.1); SODIUM SERUM 142 mmol/L (136-145); UREA NITROGEN, BLOOD 10 mg/dL (7-18)
--- NOTE | 2021-03-06 12:57 | NUR ---
URINE OBTAINED AND SENT TO LAB
[2021-03-06 13:00] LABS: ALANINE AMINOTRANSFERASE 29 U/L (12-78); ALCOHOL, BLOOD 5 mg/dL (0-0); ALKALINE PHOSPHATASE 66 U/L (46-116); ASPARTATE AMINOTRANSFERASE 19 U/L (15-37); BILIRUBIN,DIRECT 0.2 mg/dL (0.0-0.2); BILIRUBIN,TOTAL 0.8 mg/dL (0.2-1.0); TOTAL PROTEIN, SERUM 7.2 g/dL (6.4-8.2)
[2021-03-06 13:01] LABS: ACETAMINOPHEN < 10 ug/ml (10-30)
[2021-03-06 13:32] LABS: BILIRUBIN,URINE MODERATE (NEGATIVE); COLOR,URINE AMBER (YELLOW); LEUKOCYTE ESTERASE ,URINE Negative (NEGATIVE); NITRITE, URINE Negative (NEGATIVE); PROTEIN,URINE 100 mg/dl (NEGATIVE); UGLUCOSE Negative (NEGATIVE); UROBILINOGEN,URINE 0.2 EU/dL (0.2)
[2021-03-06 13:51] LABS: RBC,URINE 0-2 /HPF (0-2)
[2021-03-06 13:57] LABS: BACTERIA,URINE None seen /HPF (None Seen); SQUAMOUS EPITHELIAL CELL,UR Few /HPF (None Seen)
--- NOTE | 2021-03-06 14:05 | NUR ---
Hall Manager consult: rehab services aide consult requested for suicidal ideation, homelessness and substance use. Patient is a 25-year-old, male. SW met with patient at his bedside in the emergency department. Patient was alert and oriented x4. Patient was calm and resting. Per chart, patient presented to the hospital on 03/06/21 with complaints of suicidal ideation and requested voluntary psychiatric admission. Patient stated that he is currently homeless and has been homeless for the last 3 years. Patient reported that he has been living in his car, with friends, or on the street. Patient stated that he currently has no source of income. SW assessed patient's history of substance use and patient reported daily, cannabis, methamphetamine, alcohol, and tobacco use. SW assessed patient's history of mental illness. Patient reported history of Bipolar Disorder and Schizophrenia. Patient stated that he is currently off his medications. Patient stated that he has a history of auditory hallucinations as evidenced by his statement, "I hear voices like screeching on a chalkboard or voices saying you'll never get out." Patient denied current auditory hallucinations. Patient stated that he is currently experiencing suicidal without a plan. Patient reported homicidal ideation and stated that his voices tell him to hurt others. Patient stated that he has no intent to harm anyone and does not want to hurt anyone specifically. Patient stated that he has no access to firearms. SW offered the patient homeless, substance use, and outpatient mental health resources. Patient accepted the resources and thanked [facility]. Patient signed the homeless waiver and SW filed waiver in the patient's chart. Patient requested voluntary psychiatric admission. KIKE will fax clinicals to [facility], , for review. PLAN: KIKE will fax clinicals to [facility], , for review. No further SS intervention at this time, however, SW will remain available as needed. RESOURCES: Year-round shelters: [facility] [place] [address] [place] [place] [address] ; [facility] [place] [address] [place] [address]; [facility] [id number] [facility]. [facility] [address] SPA 4 | [facility] Provider: First to Serve Address: [address] [place] [address], [address] # of Beds: 48 Population Served: [facility] Provider: First to Serve Address: [address] [facility], [address] # of Beds: 73 Population Served: [facility] SPA 6 | [facility] Provider: [facility] Last Address: [address] [facility], [address] # of Beds: 63 Population Served: [facility] 3 | [facility] Provider: [facility] [place] Address: [address] [facility], [address] # of Beds: 75 Population Served: [facility] 8 | [facility] Provider: [facility] [place] Address: [address] [facility] [address] # of Beds: 80 Population Served: [facility] 1 | [facility] Provider: [facility] [place] Address: [address] [place] [address], [address] # of Beds: 85 Population Served: [facility] 2 | [facility] Provider: [place] [facility] Address: Confidential (please call for location) # of Beds: 52 Population Served: [facility] 4 | [facility] Provider: [facility] Address: [address] [facility], [address] # of Beds: 49 Population Served: [facility] Provider: First To Serve Address: [address] [facility], [address] # of Beds: 27 Population Served: [facility] Hygiene: [facility]: [address] ; [facility] [address] [facility] ; [facility] [address] . Food Resources: [employer] [facility]- [address]. [place]; Meet Each Need with Dignity ([facility]) [address] [place]; [facility] [address] [facility]; [facility] [address] [employer]. Mental Health resources provided: [facility] [address] [place], [place] [id number] ; [facility] [address] [facility] [address], [place], [place] [id number] ; [facility] [address] [facility] [place], [place] [id number] ; [facility] [address] [place], [place] [address] Healthcare Clinics: [facility] [address] [facility], [address] [place]. [place] ; [facility] [address] [facility] [address] [place] [address]; [facility] [address] [facility] [address] [facility]. [place] [phone] Counseling--Outpatient [facility] [address] [facility], [address] [place], [place] [address] (Specializes in in-depth psychotherapy for emotional distress: anxiety, depression, interpersonal conflicts, life transitions, childhood abuse) PSYCHIATRIC OUTPATIENT SERVICES [facility] Partial Hospitalization and Intensive Outpatient Program (Managed Care and [place] Only) [address] [facility] [address] [facility] Partial Hospitalization and Outpatient Program [address] [place], [place] [id number] [facility] Partial Hospitalization and Outpatient Program [address] [place], [place] [id number] [facility] [address] [facility]. [address] [place], [place] [phone] [facility] Partial Hospitalization and Outpatient Program [address] [facility] Services[place], [place] [phone] Substance use resources provided included: [facility] Substance Abuse Self-Helpline (SAS) ; [facility] [address] [facility] [place] [address] ; [facility] [address] [facility] [address] ; [facility] [address] [facility] [phone] ; [facility] [address] [facility] [address] ; [facility]ically [facility] [address] [facility] [phone] ; [facility]; [facility] [place]; [facility]; Alcoholics Anonymous -[facility]
--- NOTE | 2021-03-06 14:10 | NUR ---
Motorcycle Assembler note: Per patient request for voluntary psychiatric admission, KIKE faxed clinicals to [facility], , for review.
--- NOTE | 2021-03-06 16:09 | NUR ---
ACCEPTED AT [facility] UNDER DR. SKINNER. GIVE REPORT AFTER 4:45PM. [phone]
--- NOTE | 2021-03-06 16:16 | NUR ---
REPORT GIVEN TO JOY BARRETO.
--- NOTE | 2021-03-06 16:25 | NUR ---
[id number] RESERVATION #[id number]
--- NOTE | 2021-03-06 19:48 | NUR ---
[facility] ETA 2030
[2021-03-06 19:58] VITALS: BP 138/75
--- NOTE | 2021-03-06 20:50 | NUR ---
[facility] AT BEDSIDE FOR TRANSPORT TO [facility]
== END 2021-03-06 20:51 ==
LOC: ER 12:00
DX: R45.851 Suicidal ideations (principal); Z59.0 Homelessness; F20.9 Schizophrenia, unspecified; F31.9 Bipolar disorder, unspecified; Z20.822 Contact with and (suspected) exposure to COVID-19; R82.5 Elevated urine levels of drugs, medicaments and biological substances
CPT/HCPCS: 36415; 80048; 80076; 80143; 80307; 80320; 81001; 85025; 87426; 99285; C9803; G0480

== ENCOUNTER 2021-04-02 16:52 | Emergency (ER) | payer OTHER ==
[~2021-04-02] VITALS: Ht 180.3 cm; Wt 77.1 kg
[2021-04-02 17:12] VITALS: BP 138/89
--- NOTE | 2021-04-02 17:12 | NUR ---
PT SELF PRESENTS TO ER. STATES BEEN HEARING VOICES AND BEEN OFF OF HIS PSYCH MEDICATION. PT IS REQUESTING VOLUNTARY PSYCH ADMISSION TO [facility]. DENIES SI/HI WHILE BEING TRIAGED. STABLE VITALS. SEEN MULTIPLE TIME FOR SAME COMPLAIN. AWAITING MD POSADA.
--- NOTE | 2021-04-02 17:14 | NUR ---
DR JEFFERS AT BEDSIDE FOR EVAL.
[2021-04-02 18:05] LABS: BILIRUBIN,URINE MODERATE (NEGATIVE); COLOR,URINE YELLOW (YELLOW); LEUKOCYTE ESTERASE ,URINE Negative (NEGATIVE); NITRITE, URINE Negative (NEGATIVE); PH,URINE 5.5 (5.0-8.0); PROTEIN,URINE 30 mg/dl (NEGATIVE); UGLUCOSE Negative (NEGATIVE); UROBILINOGEN,URINE 0.2 EU/dL (0.2)
[2021-04-02 18:13] LABS: BACTERIA,URINE Rare /HPF (None Seen); RBC,URINE NONE SEEN /HPF (0-2); SQUAMOUS EPITHELIAL CELL,UR Few /HPF (None Seen); WBC,URINE NONE SEEN /HPF (0-3)
--- NOTE | 2021-04-02 19:06 | NUR ---
PT NO LONGER IN HIS ROOM. MULTIPLE ATTEMP TO LOCATE FOR BLOOD DRAW. PT ELOPED.
== END 2021-04-02 19:08 | disposition left against medical advice (07) ==
LOC: ER 17:10
DX: F29 Unspecified psychosis not due to a substance or known physiological condition (principal); F31.9 Bipolar disorder, unspecified; F20.9 Schizophrenia, unspecified; F17.200 Nicotine dependence, unspecified, uncomplicated; Z60.2 Problems related to living alone
CPT/HCPCS: 81001

== ENCOUNTER 2021-05-23 07:25 | Emergency (ER) | payer OTHER ==
[~2021-05-23] VITALS: Ht 180.3 cm; Wt 77.1 kg
--- NOTE | 2021-05-23 07:33 | NUR ---
TO ER BED 20, C/O SI "RUN INTO TRAFFIC", AAOX3, BREATHING EVEN AND NON LABORED, PLACED INTO 1:1 SUPERVISION.
--- NOTE | 2021-05-23 07:40 | NUR ---
COVID SWAB DONE AND SENT TO LAB
--- NOTE | 2021-05-23 07:45 | NUR ---
URINE COLLECTED AND SENT TO LAB
[2021-05-23 08:00] LABS: BASOPHILS # (AUTO) 0.1 K/uL (0.0-0.2); BASOPHILS % (AUTO) 0.8 % (0.0-2.0); EOSINOPHILS % (AUTO) 1.1 % (0.0-6.0); HEMATOCRIT 44 % (39-51); HEMOGLOBIN 14.7 g/dL (13.5-17.5); LYMPHOCYTES # (AUTO) 1.7 K/uL (0.8-4.8); LYMPHOCYTES % (AUTO) 15.8 % (20.0-44.0); MEAN CORPUSCULAR HGB CONC 34 g/dl (31.0-36.0); MEAN CORPUSCULAR VOLUME 91 fL (80-96); NEUTROPHILS # (AUTO) 7.9 K/uL (1.8-8.9); NEUTROPHILS % (AUTO) 73.3 % (43.0-81.0); PLATELET COUNT (AUTO) 399 K/uL (150-450); RED BLOOD CELL COUNT(AUTO) 4.84 MIL/uL (4.5-6.0); WHITE BLOOD COUNT (AUTO) 10.8 K/uL (4.3-11.0)
[2021-05-23 08:08] LABS: CARBON DIOXIDE 31 mmol/L (21-32); CHLORIDE 104 mmol/L (98-107); CREATININE 1.2 mg/dL (0.6-1.3); GLUCOSE 89 mg/dL (74-106); POTASSIUM 4.7 mmol/L (3.5-5.1); SODIUM SERUM 140 mmol/L (136-145); UREA NITROGEN, BLOOD 24 mg/dL (7-18)
[2021-05-23 08:15] LABS: ALANINE AMINOTRANSFERASE 120 U/L (12-78); ALBUMIN 3.8 g/dL (3.4-5.0); ALKALINE PHOSPHATASE 84 U/L (46-116); ASPARTATE AMINOTRANSFERASE 34 U/L (15-37); BILIRUBIN,DIRECT 0.2 mg/dL (0.0-0.2); BILIRUBIN,TOTAL 0.5 mg/dL (0.2-1.0); TOTAL PROTEIN, SERUM 7.5 g/dL (6.4-8.2)
[2021-05-23 08:22] LABS: ALCOHOL, BLOOD < 3 mg/dL (0-0)
[2021-05-23 08:42] LABS: BILIRUBIN,URINE NEGATIVE (NEGATIVE); COLOR,URINE YELLOW (YELLOW); LEUKOCYTE ESTERASE ,URINE NEGATIVE (NEGATIVE); NITRITE, URINE NEGATIVE (NEGATIVE); PH,URINE 5.5 (5.0-8.0); PROTEIN,URINE NEGATIVE (NEGATIVE); UGLUCOSE NEGATIVE (NEGATIVE); UROBILINOGEN,URINE 0.2 EU/dL (0.2)
--- NOTE | 2021-05-23 14:08 | NUR ---
FAXED FACESHEET AND CLINICALS TO [facility]
[2021-05-23 15:00] VITALS: BP 127/77
--- NOTE | 2021-05-23 16:26 | NUR ---
TRANSFER INFO: PT ACCEPTED AT [facility], BY DR SKINNER AND ESTEVAN DELAROSA FOR REPORT [phone] DOC, AMBULANCE ETA [phone]
--- NOTE | 2021-05-23 16:26 | NUR ---
CALLED [facility] ETA [phone]
--- NOTE | 2021-05-23 17:42 | NUR ---
Patient eloped from facility. ER MD notified.
== END 2021-05-23 17:42 | disposition left against medical advice (07) ==
LOC: ER 07:29
DX: R45.851 Suicidal ideations (principal); F31.9 Bipolar disorder, unspecified; F20.9 Schizophrenia, unspecified; Z53.29 Procedure and treatment not carried out because of patient's decision for other reasons
CPT/HCPCS: 36415; 80048; 80076; 80143; 80307; 80320; 81003; 85025; 87426; 99285; C9803; G0480

== ENCOUNTER 2021-09-10 18:29 | Emergency (ER) | payer OTHER ==
[~2021-09-10] VITALS: Ht 170.2 cm; Wt 72.6 kg
[2021-09-10 19:30] LABS: BILIRUBIN,URINE NEGATIVE (NEGATIVE); COLOR,URINE YELLOW (YELLOW); LEUKOCYTE ESTERASE ,URINE NEGATIVE (NEGATIVE); NITRITE, URINE NEGATIVE (NEGATIVE); PH,URINE 5.5 (5.0-8.0); PROTEIN,URINE NEGATIVE (NEGATIVE); UGLUCOSE NEGATIVE (NEGATIVE); UROBILINOGEN,URINE 0.2 EU/dL (0.2)
--- NOTE | 2021-09-10 20:00 | NUR ---
PATIENT BIBSELF C/O "I have schizoprenia/have suicidal thoughts and out of my meds for 6 mos", WANTING VOL PSYCH ADMIT. PATIENT A/O 4, RR EVEN AND UNLABORED, NO SOB NOTED. PATIENT NOTED WITH STEADY GAIT.
[2021-09-10 20:24] LABS: BASOPHILS # (AUTO) 0.1 K/uL (0.0-0.2); BASOPHILS % (AUTO) 1.3 % (0.0-2.0); CARBON DIOXIDE 27 mmol/L (21-32); CHLORIDE 103 mmol/L (98-107); CREATININE 1.2 mg/dL (0.6-1.3); EOSINOPHILS % (AUTO) 2.2 % (0.0-6.0); GLUCOSE 106 mg/dL (74-106); HEMATOCRIT 41 % (39-51); HEMOGLOBIN 13.5 g/dL (13.5-17.5); LYMPHOCYTES # (AUTO) 3.2 K/uL (0.8-4.8); LYMPHOCYTES % (AUTO) 32.1 % (20.0-44.0); MEAN CORPUSCULAR HGB CONC 33 g/dl (31.0-36.0); MEAN CORPUSCULAR VOLUME 92 fL (80-96); MONOCYTES # (AUTO) 0.8 K/uL (0.1-1.30); MONOCYTES % (AUTO) 8.4 % (2.0-12.0); NEUTROPHILS # (AUTO) 5.6 K/uL (1.8-8.9); PLATELET COUNT (AUTO) 347 K/uL (150-450); POTASSIUM 4.1 mmol/L (3.5-5.1); RED BLOOD CELL COUNT(AUTO) 4.44 MIL/uL (4.5-6.0); SODIUM SERUM 138 mmol/L (136-145); UREA NITROGEN, BLOOD 16 mg/dL (7-18)
[2021-09-10 20:28] LABS: ACETAMINOPHEN < 2 ug/ml (10-30); ALANINE AMINOTRANSFERASE 34 U/L (12-78); ALBUMIN 3.5 g/dL (3.4-5.0); ALCOHOL, BLOOD < 3 mg/dL (0-0); ALKALINE PHOSPHATASE 68 U/L (46-116); ASPARTATE AMINOTRANSFERASE 21 U/L (15-37); BILIRUBIN,DIRECT 0.1 mg/dL (0.0-0.2); BILIRUBIN,TOTAL 0.3 mg/dL (0.2-1.0); TOTAL PROTEIN, SERUM 6.8 g/dL (6.4-8.2)
--- NOTE | 2021-09-10 20:58 | NUR ---
LAB AT BEDSIDE
--- NOTE | 2021-09-10 21:00 | NUR ---
COVID SWAB COLLECTED SENT TO LAB
--- NOTE | 2021-09-11 11:25 | NUR ---
ACCEPTED AFTER 1200 UNDER THE CARE OF DR. RHOADES NUMBER FOR REPORT [phone]
--- NOTE | 2021-09-11 11:27 | NUR ---
SS Consult: SS Consult requested for SI, & homelessness. The pt. is a 26-year-old Black male patient who presented to the ED with complaints of SI for the past 2 days with plan to "jump off a building". Upon SS consult, the pt. is Alert & Oriented x 4 and makes good contact. The pt. appears well-groomed, with clear speech. Pt. has depressed mood and affect. Patient states he has auditory hallucinations. SW offered pt. voluntary psychiatric Treatment and pt. is agreeable. KIKE explored pt.'s living situation. Per pt. has been experiencing homelessness for 6 month and normally resides in [place]. SW explored pt.'s drug & ETOH use. Pt. states he uses Cannabinoids & ETOH and does not feel it's a problem for him. KIKE explored pt.'s mental health Hx. Per the pt. he has been diagnosed with "Schizoaffective Disorder" in the past and has been prescribed Gabapentin, Olanzapine, Depakote, Wellbutrin. Pt. denies current HI and denies VH. Pt. states he receives food stamps, & GR. Per pt. he is ambulatory & independent with all his ADL's. Plan: Pt. was referred [facility] [[address] [place] [address] FAX:[phone]] for voluntary psychiatric treatment. KIKE provided pt. with homeless and mental health resources and pt. accepted them. Pt. signed homeless waiver and it was placed in the chart. Year-round shelters: [facility] [address] [place] [address] ; [facility] [place] [address] [place] [address]; [facility] [id number] [facility] [address] Winter Shelters: SPA 2 | [facility] Kelly: Sivakumar Bertrand Address: Confidential (call for location ) Population Served: Coed # of Beds: 57 SPA 4 | [facility] Provider: Home at Last Address: [address] [place] [address] # of Beds: 49 Population Served: Coed SPA 6 | [facility] Provider: Home at Last Address: [address] [facility] [facility] [address] # of Beds: 49 Population Served: Coed Kian Saleh Women's Custodial Provider: King Saleh DCD Address: [address] [facility] [address] # of Beds: 20 Population Served: Women KEYA Facility Provider: Home at Last Address: [address] [facility] [address] # of Beds: 30 Population Served: Women SPA 8 | [facility] Library Provider: Faizan Address: [address] [facility] [address] # of Beds: 65 Population Served: Coed Hygiene: [facility] [place] [facility]: [address] [facility] ; [place] [facility] [address] [facility] ; [facility] [address] [facility] . Food Resources: [place] [employer] [facility] at [facility]- [address] [facility]; Meet Each Need with Dignity ([facility]) [address] [facility]; [facility] [address] [facility]; [facility] 8302 [facility]. Mental Health resources provided: [facility] [address] [place] [address] ; [facility] [address] [facility] [address], [place] [address] ; Lilian Leo [facility] [address] [place] [address] ; [facility] [address] [place], [place] [id number] Healthcare Clinics: [facility] [address] [facility], [address] [place]. [place] ; [facility] [address] [facility] [address] [place] [address]; [facility] [address] [facility] [phone]) [phone] Counseling--Outpatient [facility] [address] [facility], [place] [address] (Specializes in in-depth psychotherapy for emotional distress: anxiety, depression, interpersonal conflicts, life transitions, childhood abuse) [facility] [address] [place] [address] (Assist with solving problem marital difficulties, separation & divorce, aging parents, & grief, chronic & terminal illness) [facility] [address] [place] [address] (Deal with loss & grief, anxiety, marital difficulties) Homebound/Mental Health Services [address] [facility] [address] [place] [address] (Provide in-home mental services to people who are incapable of leaving their homes) [facility]eds of [facility] Elderly Senior Service/Resource Center [address] [facility] [place] [address] [facility] [address] [place] [address] PSYCHIATRIC OUTPATIENT SERVICES [facility] Partial Hospitalization and Intensive Outpatient Program (Managed Care and [place] Only)[address] [facility]. [facility] [phone] [facility] Partial Hospitalization and Outpatient [id number] [facility] [address] [place], [place] [phone] [facility] Mental Health [place] [id number] [facility] [address] [place], [place] [phone] [facility] Partial Hospitalization and Outpatient [id number] [place], [phone] Substance Abuse resources provided included: [facility] Substance Abuse Self-Helpline ([facility]) ; [facility] [address] [facility]. [place] [address] ; [facility] [address] [facility] [address] ; [facility] [address] [place]. [place] [id number] ; [facility] [address] [facility] [address] ; [facility] [address] [facility] [address] ; [facility] [address] [facility] [phone] ; [facility] Substance Abuse Helpline([facility] ; [facility] ; [facility]; [facility] [place]; [facility] Jerrell Swan; [facility] [place]; [place]; [facility]; [facility]'s [place] [facility] [place]; Alcoholics Anonymous -SFV; Ej-Aerd-Wqudkxw ; Marijuana Anonymous -SFV; Narcotics Anonymous www.na.org;
[2021-09-11 16:20] VITALS: BP 120/60
--- NOTE | 2021-09-11 16:50 | NUR ---
PICKED UP BY [facility] IN STABLE CONDITION
== END 2021-09-11 17:04 ==
LOC: ER 18:34
DX: R45.851 Suicidal ideations (principal); F20.9 Schizophrenia, unspecified; F19.10 Other psychoactive substance abuse, uncomplicated; Z20.822 Contact with and (suspected) exposure to COVID-19; Z59.01 Sheltered homelessness; F31.9 Bipolar disorder, unspecified; F17.200 Nicotine dependence, unspecified, uncomplicated
CPT/HCPCS: 36415; 80048; 80076; 80143; 80307; 80320; 81003; 85025; 87426; 99285; C9803; G0480

== ENCOUNTER 2021-09-26 00:21 | Emergency (ER) | payer OTHER ==
[~2021-09-26] VITALS: Ht 180.3 cm; Wt 77.1 kg
--- NOTE | 2021-09-26 03:14 | NUR ---
PT BIBS C/O S/I WITH PLAN TO "JUMP OFF BUILDING". PATIENT ALERT AND ORIENTED X3. AMBULATORY WITH NON LABORED BREATHING. [facility]
--- NOTE | 2021-09-26 03:30 | NUR ---
URINE AND COVID SENT
[2021-09-26 03:55] LABS: BASOPHILS # (AUTO) 0.1 K/uL (0.0-0.2); BASOPHILS % (AUTO) 1.2 % (0.0-2.0); EOSINOPHILS % (AUTO) 3.3 % (0.0-6.0); HEMATOCRIT 41 % (39-51); HEMOGLOBIN 13.6 g/dL (13.5-17.5); LYMPHOCYTES # (AUTO) 3.1 K/uL (0.8-4.8); LYMPHOCYTES % (AUTO) 30.9 % (20.0-44.0); MEAN CORPUSCULAR HGB CONC 33 g/dl (31.0-36.0); MEAN CORPUSCULAR VOLUME 93 fL (80-96); MONOCYTES # (AUTO) 0.8 K/uL (0.1-1.30); MONOCYTES % (AUTO) 7.8 % (2.0-12.0); NEUTROPHILS # (AUTO) 5.7 K/uL (1.8-8.9); NEUTROPHILS % (AUTO) 56.8 % (43.0-81.0); PLATELET COUNT (AUTO) 308 K/uL (150-450); RED BLOOD CELL COUNT(AUTO) 4.39 MIL/uL (4.5-6.0); WHITE BLOOD COUNT (AUTO) 10.1 K/uL (4.3-11.0)
[2021-09-26 04:03] LABS: CARBON DIOXIDE 31 mmol/L (21-32); CHLORIDE 104 mmol/L (98-107); CREATININE 0.9 mg/dL (0.6-1.3); GLUCOSE 99 mg/dL (74-106); POTASSIUM 4.2 mmol/L (3.5-5.1); SODIUM SERUM 139 mmol/L (136-145); UREA NITROGEN, BLOOD 22 mg/dL (7-18)
[2021-09-26 04:08] LABS: ALANINE AMINOTRANSFERASE 27 U/L (12-78); ALBUMIN 3.7 g/dL (3.4-5.0); ALCOHOL, BLOOD < 3 mg/dL (0-0); ALKALINE PHOSPHATASE 79 U/L (46-116); ASPARTATE AMINOTRANSFERASE 15 U/L (15-37); BILIRUBIN,DIRECT 0.1 mg/dL (0.0-0.2); BILIRUBIN,TOTAL 0.2 mg/dL (0.2-1.0)
[2021-09-26 04:09] LABS: ACETAMINOPHEN 0 ug/ml (10-30)
[2021-09-26 04:14] LABS: BILIRUBIN,URINE NEGATIVE (NEGATIVE); COLOR,URINE YELLOW (YELLOW); LEUKOCYTE ESTERASE ,URINE NEGATIVE (NEGATIVE); NITRITE, URINE NEGATIVE (NEGATIVE); PROTEIN,URINE NEGATIVE (NEGATIVE); UGLUCOSE NEGATIVE (NEGATIVE); UROBILINOGEN,URINE 0.2 EU/dL (0.2)
--- NOTE | 2021-09-26 06:21 | NUR ---
PER [facility], NO BEDS AT THIS TIME, FAX CLINICALS AFTER 8AM
--- NOTE | 2021-09-26 11:25 | NUR ---
called [facility] intake. patient is on do not accept list.
--- NOTE | 2021-09-26 11:55 | NUR ---
LUNCH TRAY PROVIDED.
--- NOTE | 2021-09-26 13:00 | NUR ---
PT STATED HE FEELS MUCH BETTER AND NOT SUICIDAL ANYMORE. PT REQEUSTING TO BE DISCHARGED.
--- NOTE | 2021-09-26 13:59 | NUR ---
Patient discharged to home in stable condition. Written and verbal after care instructions given. Patient verbalizes understanding of instruction.
[2021-09-26 14:00] VITALS: BP 124/72
== END 2021-09-26 14:04 | disposition home or self-care (01) ==
LOC: ER 00:21
DX: R45.851 Suicidal ideations (principal); F19.10 Other psychoactive substance abuse, uncomplicated; Z59.00 Homelessness unspecified; F31.9 Bipolar disorder, unspecified; F20.9 Schizophrenia, unspecified; Z20.822 Contact with and (suspected) exposure to COVID-19
CPT/HCPCS: 36415; 80048; 80076; 80143; 80307; 80320; 81003; 85025; 87426; 99285; C9803; G0480

== ENCOUNTER 2021-10-19 07:29 | Emergency (ER) | payer OTHER ==
[~2021-10-19] VITALS: Ht 180.3 cm; Wt 78.5 kg
--- NOTE | 2021-10-19 07:29 | NUR ---
PT EZEQUIEL FROM THE STREET C/O [facility]. PT IS AAOX2, NOT IN RESPIRATORY DISTRESS, HOOKED TO DUMPSTER DRIVER, KEPT RESTED AND COMFORTABLE. SITTER AT BEDSIDE WILL CONTINUE TO MONITOR.
[2021-10-19] MEDS ORDERED: HALOPERIDOL LACTATE INJ 5 MG/ML VIAL ONE (07:32)
[2021-10-19] MEDS ORDERED: LORAZEPAM INJ 2 MG/ML VIAL ONE (07:33)
--- NOTE | 2021-10-19 07:33 | NUR ---
SEEN AND EXAMINED BY .
[2021-10-19] MEDS ORDERED: LORAZEPAM INJ 2 MG/ML VIAL IM ONE (08:00)
[2021-10-19] MEDS ORDERED: HALOPERIDOL LACTATE INJ 5 MG/ML VIAL IM ONE (08:00)
[2021-10-19 08:05] LABS: BASOPHILS # (AUTO) 0.1 K/uL (0.0-0.2); BASOPHILS % (AUTO) 1.1 % (0.0-2.0); EOSINOPHILS % (AUTO) 3.4 % (0.0-6.0); HEMATOCRIT 44 % (39-51); HEMOGLOBIN 14.4 g/dL (13.5-17.5); LYMPHOCYTES % (AUTO) 29.5 % (20.0-44.0); MEAN CORPUSCULAR HGB CONC 32 g/dl (31.0-36.0); MEAN CORPUSCULAR VOLUME 92 fL (80-96); MONOCYTES # (AUTO) 1.2 K/uL (0.1-1.30); MONOCYTES % (AUTO) 9.2 % (2.0-12.0); NEUTROPHILS # (AUTO) 7.6 K/uL (1.8-8.9); NEUTROPHILS % (AUTO) 56.8 % (43.0-81.0); PLATELET COUNT (AUTO) 412 K/uL (150-450); WHITE BLOOD COUNT (AUTO) 13.5 K/uL (4.3-11.0)
[2021-10-19 08:43] LABS: ALANINE AMINOTRANSFERASE 52 U/L (12-78); ALBUMIN 3.8 g/dL (3.4-5.0); ALCOHOL, BLOOD < 3 mg/dL (0-0); ALKALINE PHOSPHATASE 80 U/L (46-116); ASPARTATE AMINOTRANSFERASE 34 U/L (15-37); BILIRUBIN,DIRECT 0.1 mg/dL (0.0-0.2); BILIRUBIN,TOTAL 0.3 mg/dL (0.2-1.0); CALCIUM, SERUM 9.6 mg/dL (8.5-10.1); CARBON DIOXIDE 16 mmol/L (21-32); CHLORIDE 99 mmol/L (98-107); CREATININE 1.6 mg/dL (0.6-1.3); POTASSIUM 3.2 mmol/L (3.5-5.1); SODIUM SERUM 140 mmol/L (136-145); TOTAL PROTEIN, SERUM 7.9 g/dL (6.4-8.2); UREA NITROGEN, BLOOD 18 mg/dL (7-18)
[2021-10-19 08:55] LABS: ACETAMINOPHEN 0 ug/ml (10-30)
--- NOTE | 2021-10-19 10:05 | NUR ---
THE PATIENT IS CALM AND COOPERATIVE. RESTRAINS DISCONTINUE AFTER ASSESSING THE PATIENT AND INFORMING DR CAMPOVERDE.
[2021-10-19 11:07] LABS: GLUCOSE 100 mg/dL (74-106)
--- NOTE | 2021-10-19 16:32 | NUR ---
SS Consult: Pt. Is a 26-year-old Black male who does not demonstrates adequate insight to the reason for hospitalization. Pt. was oriented x3, alert, and cooperative. During interview, pt. was capable of following directions, made appropriate eye-contact, and unkempt. Pt.'s speech was at a normal rate. Pt.'s mood was elevated. SW explored pt.'s Hx of mental health and substance abuse. Pt. reported no Hx of mental health, SI/HI, denied VH, paranoia or delusions. Per pt., he uses marijuana, methamphetamine, and alcohol. SW suggested rehab and pt. denied. SW explored pt.'s living situation. Per pt., he has been homeless for couple years. Pt. stated that he experiences auditory hallucinations. Pt. has no concerns at this time. Plan: SW provided available resources and pt. accepted. Once discharge, per pt., he will return to back to the streets. Resources Provided: Homeless Resources, Addiction Resources
--- NOTE | 2021-10-19 17:06 | NUR ---
URINE SPECIMEN. LAB CALLED FOR ASSISTANT QUALITY MANAGER.
[2021-10-19 18:11] LABS: BILIRUBIN,URINE NEGATIVE (NEGATIVE); COLOR,URINE YELLOW (YELLOW); LEUKOCYTE ESTERASE ,URINE NEGATIVE (NEGATIVE); NITRITE, URINE NEGATIVE (NEGATIVE); PROTEIN,URINE NEGATIVE (NEGATIVE); UGLUCOSE NEGATIVE (NEGATIVE); UROBILINOGEN,URINE 0.2 EU/dL (0.2)
--- NOTE | 2021-10-20 05:01 | NUR ---
PATIENT ALERT, OX4. AMBULATORY WITH STEADY GAITS AND STABLE VITAL SIGNS. PO INTAKE TOLETATED WELL. REPORTED FEEING WELL AND WILLING TO LEAVE.
--- NOTE | 2021-10-20 05:23 | NUR ---
PATIENT IS MEDICALLY STABLE FOR D/C PER MD. PATIENT WAS PROVIDED WITH A PAIR OF SHOES AND FOOD AND DRINK. Patient discharged to home in stable condition. Written and verbal after care instructions given. Patient verbalizes understanding of instruction.
[2021-10-20 05:26] VITALS: BP 121/72
== END 2021-10-20 05:27 | disposition home or self-care (01) ==
LOC: ER 07:33
DX: F19.10 Other psychoactive substance abuse, uncomplicated (principal); F20.9 Schizophrenia, unspecified; F31.9 Bipolar disorder, unspecified; F17.200 Nicotine dependence, unspecified, uncomplicated; Z60.2 Problems related to living alone
CPT/HCPCS: 36415; 80048; 80076; 80143; 80307; 80320; 81003; 85025; 96372 ×2; 99291; J1630; J2060; G0480

== ENCOUNTER 2021-12-19 11:09 | Emergency (ER) | payer OTHER ==
--- NOTE | 2021-12-19 11:14 | NUR ---
CALLED TO TRIAGE NO ANSWER.
--- NOTE | 2021-12-19 11:22 | NUR ---
CALLED TO TRIAGE NO ANSWER.
--- NOTE | 2021-12-19 11:30 | NUR ---
Patient left without being seen by ER Physician
== END 2021-12-19 11:32 | disposition left against medical advice (07) ==
LOC: ER 11:12
DX: Z53.21 Procedure and treatment not carried out due to patient leaving prior to being seen by health care provider (principal)

== ENCOUNTER 2022-07-01 14:54 | Emergency (ER) | payer MEDICAID, OTHER ==
[~2022-07-01] VITALS: Ht 182.9 cm; Wt 77.1 kg
[2022-07-01 17:15] LABS: BILIRUBIN,URINE 1+ (NEGATIVE); COLOR,URINE YELLOW (YELLOW); LEUKOCYTE ESTERASE ,URINE NEGATIVE (NEGATIVE); NITRITE, URINE NEGATIVE (NEGATIVE); UGLUCOSE NEGATIVE (NEGATIVE); UROBILINOGEN,URINE 0.2 EU/dL (0.2)
[2022-07-01 17:16] LABS: PROTEIN,URINE NEGATIVE (NEGATIVE)
[2022-07-01 17:36] LABS: BASOPHILS # (AUTO) 0.1 K/uL (0.0-0.2); BASOPHILS % (AUTO) 1.1 % (0.0-2.0); EOSINOPHILS % (AUTO) 3.3 % (0.0-6.0); HEMATOCRIT 43 % (39-51); HEMOGLOBIN 14.5 g/dL (13.5-17.5); LYMPHOCYTES # (AUTO) 2.2 K/uL (0.8-4.8); LYMPHOCYTES % (AUTO) 31.7 % (20.0-44.0); MEAN CORPUSCULAR HGB CONC 33 g/dl (31.0-36.0); MEAN CORPUSCULAR VOLUME 88 fL (80-96); MONOCYTES # (AUTO) 0.5 K/uL (0.1-1.30); MONOCYTES % (AUTO) 6.8 % (2.0-12.0); NEUTROPHILS % (AUTO) 57.1 % (43.0-81.0); PLATELET COUNT (AUTO) 295 K/uL (150-450); RED BLOOD CELL COUNT(AUTO) 4.91 MIL/uL (4.5-6.0); WHITE BLOOD COUNT (AUTO) 7.1 K/uL (4.3-11.0)
[2022-07-01 18:01] LABS: ALANINE AMINOTRANSFERASE 28 U/L (12-78); ALBUMIN 4.1 g/dL (3.4-5.0); ALCOHOL, BLOOD < 3 mg/dL (0-0); ALKALINE PHOSPHATASE 54 U/L (46-116); ASPARTATE AMINOTRANSFERASE 26 U/L (15-37); BILIRUBIN,DIRECT 0.2 mg/dL (0.0-0.2); BILIRUBIN,TOTAL 0.7 mg/dL (0.2-1.0); CALCIUM, SERUM 9.3 mg/dL (8.5-10.1); CARBON DIOXIDE 30 mmol/L (21-32); CHLORIDE 102 mmol/L (98-107); CREATININE 1.3 mg/dL (0.6-1.3); GLUCOSE 74 mg/dL (74-106); POTASSIUM 3.7 mmol/L (3.5-5.1); SODIUM SERUM 137 mmol/L (136-145); TOTAL PROTEIN, SERUM 7.3 g/dL (6.4-8.2); UREA NITROGEN, BLOOD 17 mg/dL (7-18)
[2022-07-01 18:04] LABS: ACETAMINOPHEN < 10 ug/ml (10-30)
--- NOTE | 2022-07-01 18:54 | NUR ---
[facility]
[2022-07-01 20:00] VITALS: BP 148/80
--- NOTE | 2022-07-01 20:50 | NUR ---
ACCEPTED TO [facility] UNDER DR RHOADES [phone] - ASKED TO BE ROUTED TO UNIT 1
--- NOTE | 2022-07-01 20:53 | NUR ---
[facility] CALLED FOR BLS GOING TO [facility] PER [facility] ETA - 75 MIN
--- NOTE | 2022-07-01 21:46 | NUR ---
REPORT GIVEN TO MARGARITO HARDIN UINT 1
--- NOTE | 2022-07-01 21:46 | NUR ---
REPORT GIVEN TO EMS AT BEDSIDE
== END 2022-07-01 22:00 ==
LOC: ER 15:02
DX: R45.851 Suicidal ideations (principal); F19.10 Other psychoactive substance abuse, uncomplicated; Z59.00 Homelessness unspecified; Z20.822 Contact with and (suspected) exposure to COVID-19; F17.200 Nicotine dependence, unspecified, uncomplicated; F31.9 Bipolar disorder, unspecified; F25.9 Schizoaffective disorder, unspecified
CPT/HCPCS: 99285; 85025; 80048; 80076; 81003; 36415; 87426; 80143; 80320; 80307; C9803; G0480

== ENCOUNTER 2022-07-11 00:38 | Emergency (ER) | payer MEDICAID ==
[~2022-07-11] VITALS: Ht 182.9 cm; Wt 77.1 kg
--- NOTE | 2022-07-11 02:27 | NUR ---
Patient came in to the er c/o +SI "i want to run through traffic". On room air, breathing evenly and unlabored. Security at bedside for wanding. Will continue to monitor accordingly.
--- NOTE | 2022-07-11 02:28 | NUR ---
covid swab and urine collected and sent to lab.
[2022-07-11 03:02] LABS: BASOPHILS % (AUTO) 0.6 % (0.0-2.0); EOSINOPHILS % (AUTO) 3.3 % (0.0-6.0); HEMATOCRIT 39 % (39-51); HEMOGLOBIN 12.8 g/dL (13.5-17.5); LYMPHOCYTES # (AUTO) 1.7 K/uL (0.8-4.8); LYMPHOCYTES % (AUTO) 26.9 % (20.0-44.0); MEAN CORPUSCULAR HGB CONC 33 g/dl (31.0-36.0); MEAN CORPUSCULAR VOLUME 89 fL (80-96); MONOCYTES # (AUTO) 0.8 K/uL (0.1-1.30); MONOCYTES % (AUTO) 12.4 % (2.0-12.0); NEUTROPHILS # (AUTO) 3.6 K/uL (1.8-8.9); NEUTROPHILS % (AUTO) 56.8 % (43.0-81.0); PLATELET COUNT (AUTO) 248 K/uL (150-450); RED BLOOD CELL COUNT(AUTO) 4.38 MIL/uL (4.5-6.0); WHITE BLOOD COUNT (AUTO) 6.4 K/uL (4.3-11.0)
[2022-07-11 03:04] LABS: BILIRUBIN,URINE NEGATIVE (NEGATIVE); COLOR,URINE YELLOW (YELLOW); LEUKOCYTE ESTERASE ,URINE NEGATIVE (NEGATIVE); NITRITE, URINE NEGATIVE (NEGATIVE); PH,URINE 5.5 (5.0-8.0); PROTEIN,URINE 1+ mg/dl (NEGATIVE); UGLUCOSE NEGATIVE (NEGATIVE); UROBILINOGEN,URINE 0.2 EU/dL (0.2)
[2022-07-11 03:16] LABS: BACTERIA,URINE Rare /HPF (None Seen); RBC,URINE 0-2 /HPF (0-2); SQUAMOUS EPITHELIAL CELL,UR Moderate /HPF (None Seen); URINE AMORPHOUS URATE Moderate /HPF (None Seen); WBC,URINE 0-2 /HPF (0-3)
[2022-07-11 03:16] LABS: CALCIUM, SERUM 8.6 mg/dL (8.5-10.1); CARBON DIOXIDE 28 mmol/L (21-32); CHLORIDE 105 mmol/L (98-107); CREATININE 1.2 mg/dL (0.6-1.3); GLUCOSE 77 mg/dL (74-106); POTASSIUM 3.6 mmol/L (3.5-5.1); SODIUM SERUM 138 mmol/L (136-145); UREA NITROGEN, BLOOD 21 mg/dL (7-18)
[2022-07-11 03:22] LABS: ALANINE AMINOTRANSFERASE 29 U/L (12-78); ALBUMIN 3.4 g/dL (3.4-5.0); ALCOHOL, BLOOD < 3 mg/dL (0-0); ALKALINE PHOSPHATASE 72 U/L (46-116); ASPARTATE AMINOTRANSFERASE 33 U/L (15-37); BILIRUBIN,DIRECT 0.1 mg/dL (0.0-0.2); BILIRUBIN,TOTAL 0.3 mg/dL (0.2-1.0); TOTAL PROTEIN, SERUM 6.4 g/dL (6.4-8.2)
[2022-07-11 03:23] LABS: ACETAMINOPHEN 0 ug/ml (10-30)
[2022-07-11 12:15] VITALS: BP 133/75
--- NOTE | 2022-07-11 13:30 | NUR ---
DENIES SI/HI,REFUSED ADMISSION TO [facility]
== END 2022-07-11 13:55 | disposition home or self-care (01) ==
LOC: ER 00:48
DX: R45.851 Suicidal ideations (principal); F31.9 Bipolar disorder, unspecified; F20.9 Schizophrenia, unspecified; Z20.822 Contact with and (suspected) exposure to COVID-19; F19.10 Other psychoactive substance abuse, uncomplicated; F17.200 Nicotine dependence, unspecified, uncomplicated; Z59.01 Sheltered homelessness
CPT/HCPCS: 99285; 85025; 80048; 80076; 81001; 36415; 87426; 80143; 80320; 80307; C9803; G0480

== ENCOUNTER 2022-08-08 12:26 | Emergency (ER) | payer MEDICAID ==
[~2022-08-08] VITALS: Ht 180.3 cm; Wt 81.6 kg
--- NOTE | 2022-08-08 12:40 | NUR ---
PT IS A/OX4, C/O LEFT HAND PAIN AND SWELLING , MD AT THE BEDSIDE SEEING PT
--- NOTE | 2022-08-08 13:30 | NUR ---
md at the bedside, vss stable, xray done , continue to monitor
[2022-08-08] MEDS ORDERED: LIDOCAINE HCL/MPF 1% 30 ML VIAL IJ ONE (13:32)
[2022-08-08] MEDS ORDERED: KETO10TA2 PO (13:59)
[2022-08-08] MEDS ORDERED: SULF1TAB48 PO (13:59)
[2022-08-08] MEDS ORDERED: LIDOCAINE 1% INJ 50 ML MDV IJ ONE (14:00)
--- NOTE | 2022-08-08 14:30 | NUR ---
cast place on left hand per md order
[2022-08-08 14:43] VITALS: BP 152/93
--- NOTE | 2022-08-08 14:44 | NUR ---
Patient discharged to home in stable condition. Written and verbal after care instructions given. Patient verbalizes understanding of instruction, pt walked out of the hospital amulatory in stable condition.
== END 2022-08-08 14:45 | disposition home or self-care (01) ==
LOC: ER 12:34
DX: S62.607A Fracture of unspecified phalanx of left little finger, initial encounter for closed fracture (principal); F31.9 Bipolar disorder, unspecified; F20.9 Schizophrenia, unspecified; F17.200 Nicotine dependence, unspecified, uncomplicated; Z60.2 Problems related to living alone; Z79.899 Other long term (current) drug therapy; Y04.2XXA Assault by strike against or bumped into by another person, initial encounter; Y93.89 Activity, other specified; Y92.89 Other specified places as the place of occurrence of the external cause; Y99.8 Other external cause status
CPT/HCPCS: 99285; 29125; 73130; 73110; J3490

== ENCOUNTER 2022-08-12 17:27 | Emergency (ER) | payer MEDICAID ==
[~2022-08-12] VITALS: Ht 180.3 cm; Wt 59.0 kg
[~2022-08-12 17:27] MED LIST: KETO10TA2 PO; SULF1TAB48 PO
[2022-08-12 17:35] VITALS: BP 142/82
== END 2022-08-12 19:45 | disposition home or self-care (01) ==
LOC: ER 17:39
DX: M79.642 Pain in left hand (principal); F20.9 Schizophrenia, unspecified; F31.9 Bipolar disorder, unspecified; Z60.2 Problems related to living alone; Z79.899 Other long term (current) drug therapy
CPT/HCPCS: 73130-TC

== ENCOUNTER 2022-08-14 14:40 | Emergency (ER) | payer MEDICAID ==
--- NOTE | 2022-08-14 16:05 | NUR ---
CALLED IN ED WAITING ROOM NO RESPONSE
--- NOTE | 2022-08-14 17:35 | NUR ---
CALLED IN ED WAITING ROOM. NO RESPONSE. LEFT WITHOUT BEING TRIAGED.
== END 2022-08-14 17:37 | disposition left against medical advice (07) ==
LOC: ER 14:42
DX: Z53.21 Procedure and treatment not carried out due to patient leaving prior to being seen by health care provider (principal)

== ENCOUNTER 2022-08-16 09:48 | Emergency (ER) | payer MEDICAID ==
[~2022-08-16] VITALS: Ht 182.9 cm; Wt 81.6 kg
--- NOTE | 2022-08-16 10:44 | NUR ---
DR CHAO AT BEDSIDE W/ PT
[2022-08-16] MEDS ORDERED: ACETAMINOPHEN 325 MG TABLET PO ONE (11:00)
--- NOTE | 2022-08-16 11:00 | NUR ---
BIB MOTHER C/O WORSENING LUE PAIN AND SWELLING
[2022-08-16] MEDS ORDERED: ACETAMINOPHEN 325 MG TABLET ONE (11:01)
[2022-08-16] MEDS ORDERED: SULF1TAB48 PO (11:58)
[2022-08-16] MEDS ORDERED: NAPR-1164 PO (11:58)
[2022-08-16] MEDS ORDERED: TYL2T PO (11:58)
--- NOTE | 2022-08-16 12:14 | NUR ---
TECH AT BEDSIDE FOR SPLINT APPLICATION
--- NOTE | 2022-08-16 13:05 | NUR ---
Patient discharged to home in stable condition. Written and verbal after care instructions given. Patient verbalizes understanding of instruction.
[2022-08-16 13:09] VITALS: BP 130/80
== END 2022-08-16 13:05 | disposition home or self-care (01) ==
LOC: ER 09:54
DX: L03.012 Cellulitis of left finger (principal); M79.642 Pain in left hand; F31.9 Bipolar disorder, unspecified; F17.200 Nicotine dependence, unspecified, uncomplicated; Z60.2 Problems related to living alone; Z79.899 Other long term (current) drug therapy
CPT/HCPCS: 73130-TC

== ENCOUNTER 2025-02-01 06:32 | Inpatient (IN) | payer MEDICAID, OTHER ==
[~2025-02-01] VITALS: Ht 182.9 cm; Wt 74.4 kg
[~2025-02-01 06:32] MED LIST changes: +NAPR-1164 PO; +TYL2T PO
[2025-02-01 07:09] LABS: BASOPHILS # (AUTO) 0.1 K/uL (0.0-0.2); BASOPHILS % (AUTO) 0.9 % (0.0-2.0); EOSINOPHILS # (AUTO) 0.4 K/uL (0.0-0.7); EOSINOPHILS % (AUTO) 3.4 % (0.0-6.0); HEMATOCRIT 45 % (39-51); HEMOGLOBIN 14.8 g/dL (13.5-17.5); LYMPHOCYTES # (AUTO) 2.5 K/uL (0.8-4.8); LYMPHOCYTES % (AUTO) 21.7 % (20.0-44.0); MEAN CORPUSCULAR HEMOGLOBIN 28 PG (26.0-33.0); MEAN CORPUSCULAR HGB CONC 33 g/dl (31.0-36.0); MEAN CORPUSCULAR VOLUME 85 fL (80-96); MONOCYTES # (AUTO) 1.3 K/uL (0.1-1.30); MONOCYTES % (AUTO) 11.7 % (2.0-12.0); NEUTROPHILS # (AUTO) 7.1 K/uL (1.8-8.9); NEUTROPHILS % (AUTO) 62.3 % (43.0-81.0); PLATELET COUNT (AUTO) 376 K/uL (150-450); RED BLOOD CELL COUNT(AUTO) 5.28 MIL/uL (4.5-6.0); RED CELL DISTRIBUTION WIDTH 13.8 % (11.5-15.0); WHITE BLOOD COUNT (AUTO) 11.5 K/uL (4.3-11.0)
[2025-02-01 07:18] LABS: CALCIUM, SERUM 9.5 mg/dL (8.5-10.1); CARBON DIOXIDE 31 mmol/L (21-32); CHLORIDE 91 mmol/L (98-107); CREATININE 1.7 mg/dL (0.6-1.3); GLUCOSE 142 mg/dL (74-106); SODIUM SERUM 134 mmol/L (136-145); UREA NITROGEN, BLOOD 52 mg/dL (7-18)
[2025-02-01] MEDS ORDERED: POTASSIUM CHLORIDE 20 MEQ TAB.PRT.SR PO ONE (07:30)
[2025-02-01] MEDS: POTASSIUM CHLORIDE 20 MEQ TAB.PRT.SR PO ONE (07:34)
[2025-02-01 07:37] LABS: ALANINE AMINOTRANSFERASE 77 U/L (12-78); ALBUMIN 4.8 g/dL (3.4-5.0); ALCOHOL, BLOOD < 3 mg/dL (0-10); ALKALINE PHOSPHATASE 94 U/L (46-116); ASPARTATE AMINOTRANSFERASE 117 U/L (15-37); BILIRUBIN,DIRECT 0.2 mg/dL (0.0-0.2); TOTAL PROTEIN, SERUM 9.5 g/dL (6.4-8.2)
[2025-02-01 07:40] LABS: ACETAMINOPHEN <10 ug/ml (10-30); SALICYLATE 2.2 mg/dL (2.8-20.0)
[2025-02-01 07:41] LABS: POTASSIUM 2.5 mmol/L (3.5-5.1)
[2025-02-01] MEDS ORDERED: POTASSIUM CL. PREMIX PERIPHER. 100 ML ONE ×2 (07:44→08:46)
[2025-02-01] MEDS: POTASSIUM CL. PREMIX PERIPHER. 50 ML IV SCH (08:00)
[2025-02-01] MEDS: IV NS 0.9% 1,000 ML BAG IV ONE (08:00)
[2025-02-01 10:30] VITALS: BP 118/68; TEMP 98.5; O2SAT 100
[2025-02-01] MEDS ORDERED: ONDANSETRON HCL/PF 4 MG/2 ML VIAL IVP PRN (12:00)
[2025-02-01] MEDS: IV D5/0.45 NACL 1,000 ML IV PRN (13:49)
[2025-02-01 16:00] VITALS: BP 122/63; TEMP 97.8; O2SAT 97
[2025-02-01] MEDS: IV NS 0.9% 1,000 ML IV ONE (18:34)
[2025-02-01 20:00] VITALS: BP 108/69; TEMP 98.4; O2SAT 100
[2025-02-02] VITALS: BP 108/69; TEMP 98.2
[2025-02-02 04:00] VITALS: BP 101/61; TEMP 98.1; O2SAT 98
[2025-02-02 04:53] LABS: APPEARANCE,URINE CLEAR (CLEAR); BILIRUBIN,URINE NEGATIVE (NEGATIVE); BLOOD, URINE NEGATIVE Ery/uL (NEGATIVE); COLOR,URINE YELLOW (YELLOW); KETONES,URINE TRACE mg/dL (NEGATIVE); LEUKOCYTE ESTERASE ,URINE NEGATIVE (NEGATIVE); NITRITE, URINE NEGATIVE (NEGATIVE); PH,URINE 6.5 (5.0-8.0); PROTEIN,URINE 1+ mg/dl (NEGATIVE); UGLUCOSE NEGATIVE (NEGATIVE)
[2025-02-02 05:18] LABS: RBC,URINE NONE SEEN /HPF (0-2); WBC,URINE NONE SEEN /HPF (0-3)
[2025-02-02 05:19] LABS: ADD URINE CULTURE YES; BACTERIA,URINE 1+ /HPF (None Seen); SQUAMOUS EPITHELIAL CELL,UR 0-2 /HPF (None Seen)
[2025-02-02 05:22] LABS: BARBITURATE, URINE NEGATIVE (NEGATIVE); BENZODIAZEPINE, URINE NEGATIVE (NEGATIVE); COCCAINE, URINE NEGATIVE (NEGATIVE); OPIATE, URINE NEGATIVE (NEGATIVE); PHENCYCLIDINE SCREEN,URINE NEGATIVE (NEGATIVE)
[2025-02-02 05:23] LABS: AMPHETAMINE, URINE POSITIVE (NEGATIVE); CANNABINOID, URINE POSITIVE (NEGATIVE)
[2025-02-02 07:34] LABS: BASOPHILS % (AUTO) 0.7 % (0.0-2.0); EOSINOPHILS # (AUTO) 0.2 K/uL (0.0-0.7); EOSINOPHILS % (AUTO) 3.7 % (0.0-6.0); HEMATOCRIT 36 % (39-51); HEMOGLOBIN 12.1 g/dL (13.5-17.5); LYMPHOCYTES # (AUTO) 1.2 K/uL (0.8-4.8); LYMPHOCYTES % (AUTO) 18.3 % (20.0-44.0); MEAN CORPUSCULAR HEMOGLOBIN 29 PG (26.0-33.0); MEAN CORPUSCULAR HGB CONC 34 g/dl (31.0-36.0); MEAN CORPUSCULAR VOLUME 84 fL (80-96); MONOCYTES # (AUTO) 0.8 K/uL (0.1-1.30); MONOCYTES % (AUTO) 11.6 % (2.0-12.0); NEUTROPHILS # (AUTO) 4.3 K/uL (1.8-8.9); NEUTROPHILS % (AUTO) 65.7 % (43.0-81.0); PLATELET COUNT (AUTO) 284 K/uL (150-450); RED BLOOD CELL COUNT(AUTO) 4.21 MIL/uL (4.5-6.0); WHITE BLOOD COUNT (AUTO) 6.6 K/uL (4.3-11.0)
[2025-02-02 08:00] VITALS: BP 95/55; TEMP 97.1; O2SAT 99
[2025-02-02 08:16] LABS: THYROID STIMULATING HORMONE 0.21 uIU/mL (0.358-3.74)
[2025-02-02] MEDS: PANTOPRAZOLE 40 MG VIAL IV SCH (08:27)
[2025-02-02 08:45] LABS: CALCIUM, SERUM 8.8 mg/dL (8.5-10.1); PHOSPHORUS 2.2 mg/dL (2.5-4.9); POTASSIUM 3.2 mmol/L (3.5-5.1)
[2025-02-02] MEDS: POTASSIUM CHLORIDE 20 MEQ TAB.PRT.SR PO SCH (10:06)
[2025-02-02 12:00] VITALS: BP 99/60; TEMP 98; O2SAT 98
[2025-02-02 16:00] VITALS: BP 103/64; TEMP 98.4; O2SAT 99
[2025-02-02] MEDS: K PHOS NEUTRAL 250 MG TABLET PO ONE (16:28)
[2025-02-02 20:00] VITALS: BP 99/62; TEMP 97.7; O2SAT 98
[2025-02-03] VITALS: BP 135/62; TEMP 98.1; O2SAT 97
[2025-02-03 04:00] VITALS: BP 109/83; TEMP 98.1; O2SAT 97
[2025-02-03 07:22] LABS: CALCIUM, SERUM 8.7 mg/dL (8.5-10.1); CREATININE 0.7 mg/dL (0.6-1.3); MAGNESIUM 2.3 mg/dL (1.8-2.4); PHOSPHORUS 2.3 mg/dL (2.5-4.9); POTASSIUM 3.5 mmol/L (3.5-5.1)
[2025-02-03 08:00] VITALS: BP 105/83; TEMP 98.2; O2SAT 98
[2025-02-03] MEDS: ESCITALOPRAM OXALATE (10 MG) 10 MG TABLET PO SCH (08:55)
[2025-02-03] MEDS: PANTOPRAZOLE 40 MG TABLET.DR PO SCH (09:06)
[2025-02-03 12:00] VITALS: BP 100/64; TEMP 97.9; O2SAT 99
[2025-02-03 16:00] VITALS: BP 103/71; TEMP 98.2; O2SAT 99
[2025-02-03] MEDS: K PHOS NEUTRAL 250 MG TABLET PO ONE (17:07)
[2025-02-03 20:00] VITALS: BP 114/78; TEMP 98.6; O2SAT 100
[2025-02-04] VITALS: BP 112/62; TEMP 98.6; O2SAT 99
[2025-02-04 04:00] VITALS: BP 101/57; TEMP 98.7; O2SAT 99
[2025-02-04 07:17] LABS: CALCIUM, SERUM 8.8 mg/dL (8.5-10.1); CREATININE 0.8 mg/dL (0.6-1.3); PHOSPHORUS 2.7 mg/dL (2.5-4.9); POTASSIUM 3.5 mmol/L (3.5-5.1)
[2025-02-04 08:00] VITALS: BP 105/59; TEMP 97.9; O2SAT 99
[2025-02-04] MEDS ORDERED: LIDOCAINE 5% OINT 35.44 GM TUBE TP SCH (10:30)
[2025-02-04 12:00] VITALS: BP 108/70; TEMP 98.4; O2SAT 98
[2025-02-04 16:00] VITALS: BP 131/73; TEMP 98.7; O2SAT 100
[2025-02-04 20:00] VITALS: BP 116/95; TEMP 97.9; O2SAT 98
[2025-02-05] VITALS: BP 110/65; TEMP 97.6; O2SAT 100
[2025-02-05 04:00] VITALS: BP 100/70; TEMP 97.3; O2SAT 99
[2025-02-05 08:00] VITALS: BP 100/67; TEMP 97.9; O2SAT 99
[2025-02-05 09:08] LABS: CALCIUM, SERUM 9.1 mg/dL (8.5-10.1); CREATININE 0.8 mg/dL (0.6-1.3); POTASSIUM 3.5 mmol/L (3.5-5.1)
== END 2025-02-05 11:08 | disposition home or self-care (01) | DRG 351 ==
LOC: ER 06:35 → TELE1 09:59 → MEDSG1 02-05 08:36
DX: M62.82 Rhabdomyolysis (principal); N17.9 Acute kidney failure, unspecified; E87.6 Hypokalemia; R45.851 Suicidal ideations; Z59.00 Homelessness unspecified; F17.210 Nicotine dependence, cigarettes, uncomplicated; Z20.822 Contact with and (suspected) exposure to COVID-19; F39 Unspecified mood [affective] disorder; F32.9 Major depressive disorder, single episode, unspecified; E86.0 Dehydration
CPT/HCPCS: 36415; 80048-TC; 80061-TC; 80076-TC; 81001; 82550-TC; 82553; 83735-TC; 84100-TC; 84443-TC; 85025-TC; 87081-TC; 87086-TC; 98960; A4223; G0378; G0480; J2470; J3480; J3490; J7030; J7042

== ENCOUNTER 2025-07-09 06:12 | Emergency (ER) | payer OTHER ==
[~2025-07-09] VITALS: Ht 175.3 cm; Wt 68.0 kg
[2025-07-09 07:28] LABS: PLATELET COUNT (AUTO) 385 K/uL (150-450); RED BLOOD CELL COUNT(AUTO) 4.98 MIL/uL (4.5-6.0); RED CELL DISTRIBUTION WIDTH 14.7 % (11.5-15.0); WHITE BLOOD COUNT (AUTO) 8.2 K/uL (4.3-11.0)
[2025-07-09 07:34] LABS: APPEARANCE,URINE CLEAR (CLEAR); BLOOD, URINE NEGATIVE Ery/uL (NEGATIVE); LEUKOCYTE ESTERASE ,URINE NEGATIVE (NEGATIVE); NITRITE, URINE NEGATIVE (NEGATIVE); UGLUCOSE NEGATIVE (NEGATIVE)
[2025-07-09 07:56] LABS: CREATININE 1.2 mg/dL (0.6-1.3); SODIUM SERUM 140 mmol/L (136-145)
[2025-07-09 07:57] LABS: ADD URINE CULTURE NO; SQUAMOUS EPITHELIAL CELL,UR None Seen /HPF (None Seen)
[2025-07-09 08:13] LABS: ALCOHOL, BLOOD < 3 mg/dL (0-10); ASPARTATE AMINOTRANSFERASE 50 U/L (15-37); CALCIUM, SERUM 9.8 mg/dL (8.5-10.1); TOTAL PROTEIN, SERUM 8.8 g/dL (6.4-8.2); UREA NITROGEN, BLOOD 17 mg/dL (7-18)
[2025-07-09 08:28] LABS: BARBITURATE, URINE NEGATIVE (NEGATIVE); BENZODIAZEPINE, URINE NEGATIVE (NEGATIVE); COCCAINE, URINE NEGATIVE (NEGATIVE); OPIATE, URINE NEGATIVE (NEGATIVE)
[2025-07-09 08:29] LABS: AMPHETAMINE, URINE POSITIVE (NEGATIVE)
[2025-07-09 08:30] LABS: CANNABINOID, URINE POSITIVE (NEGATIVE)
[2025-07-09 08:42] VITALS: BP 115/72; TEMP 98.2; O2SAT 97
== END 2025-07-09 08:45 | disposition home or self-care (01) ==
LOC: ER 06:12
DX: R44.0 Auditory hallucinations (principal); F17.200 Nicotine dependence, unspecified, uncomplicated; Z59.00 Homelessness unspecified
CPT/HCPCS: 36415; 80048-TC; 80076-TC; 81001; 85025-TC; G0480

== ENCOUNTER 2025-07-12 07:15 | Emergency (ER) | payer OTHER ==
[~2025-07-12] VITALS: Ht 182.9 cm; Wt 72.6 kg
[2025-07-12 07:22] VITALS: TEMP 98.2
[2025-07-12 07:45] LABS: PLATELET COUNT (AUTO) 349 K/uL (150-450); RED BLOOD CELL COUNT(AUTO) 4.64 MIL/uL (4.5-6.0); RED CELL DISTRIBUTION WIDTH 14.3 % (11.5-15.0); WHITE BLOOD COUNT (AUTO) 9.3 K/uL (4.3-11.0)
[2025-07-12 07:48] LABS: APPEARANCE,URINE CLEAR (CLEAR); BLOOD, URINE NEGATIVE Ery/uL (NEGATIVE); LEUKOCYTE ESTERASE ,URINE NEGATIVE (NEGATIVE); NITRITE, URINE NEGATIVE (NEGATIVE); UGLUCOSE NEGATIVE (NEGATIVE)
[2025-07-12 07:52] LABS: CALCIUM, SERUM 9.6 mg/dL (8.5-10.1); CREATININE 0.8 mg/dL (0.6-1.3); SODIUM SERUM 140 mmol/L (136-145); UREA NITROGEN, BLOOD 19 mg/dL (7-18)
[2025-07-12 07:57] LABS: ASPARTATE AMINOTRANSFERASE 34 U/L (15-37); TOTAL PROTEIN, SERUM 7.9 g/dL (6.4-8.2)
[2025-07-12 07:57] LABS: BARBITURATE, URINE NEGATIVE (NEGATIVE); BENZODIAZEPINE, URINE NEGATIVE (NEGATIVE); COCCAINE, URINE NEGATIVE (NEGATIVE); OPIATE, URINE NEGATIVE (NEGATIVE)
[2025-07-12 07:59] LABS: AMPHETAMINE, URINE POSITIVE (NEGATIVE); CANNABINOID, URINE POSITIVE (NEGATIVE)
[2025-07-12 07:59] LABS: ALCOHOL, BLOOD < 3 mg/dL (0-10)
[2025-07-12 08:08] LABS: ADD URINE CULTURE NO; SQUAMOUS EPITHELIAL CELL,UR Few /HPF (None Seen)
[2025-07-12 11:17] VITALS: BP 135/60; O2SAT 99
== END 2025-07-12 11:20 ==
LOC: ER 07:21
DX: R45.851 Suicidal ideations (principal); F31.9 Bipolar disorder, unspecified; F17.200 Nicotine dependence, unspecified, uncomplicated; F15.10 Other stimulant abuse, uncomplicated; F20.9 Schizophrenia, unspecified; Z59.00 Homelessness unspecified
CPT/HCPCS: 99285; 85025; 80048; 80076; 81001; 36415; 80143; 80320; 80307; A4223; G0480